=== PATIENT | male | born 1975 | race African-American/Black ===

== ENCOUNTER 2019-02-25 09:45 | Emergency (ER) | payer OTHER, SELFPAY ==
--- OUTSIDE RECORDS SUMMARY | 2019-02-25 09:48 | XMS REPORT ---
:1975 Author Organization eClinicalWorks Care Team Providers Name Role Phone Casimiro Modien Provider Role Unavailable Allergies No Known Allergies Problems Problem Type Condition Code Onset Dates Condition Status Problem Enlarged prostate N40.0 Active Problem Nausea without vomiting R11.0 Active Problem Hemorrhoids, unspecified hemorrhoid K64.9 Active type Problem Abdominal pain, unspecified R10.9 Active abdominal location Problem Respiratory symptoms R09.89 Active Problem Abnormal heart rhythm I49.9 Active Problem Circulation problem I99.9 Active Problem Migraines G43.909 Active Problem Irritable bowel K58.9 Active Problem Erectile dysfunction F52.21 Active Problem Constipation, unspecified K59.00 Active constipation type Problem Gastroesophageal reflux disease, K21.9 Active esophagitis presence not specified Problem Sinus problem J34.9 Active Problem Bloating R14.0 Active Medications No Known Medications Results No Known Results Summary Purpose [employer] Submission
--- OUTSIDE RECORDS SUMMARY | 2019-02-25 09:48 | XMS REPORT ---
:1975 Author Organization eClinicalWorks Care Team Providers Name Role Phone Rian Tequila Provider Role Unavailable Allergies, Adverse Reactions, Alerts Substance Reaction Event Type N.K.D.A. Info Not Available Non Drug Allergy Problems Problem Type Condition Code Onset Dates Condition Status Problem Enlarged prostate N40.0 Active Problem Nausea without vomiting R11.0 Active Problem Hemorrhoids, unspecified hemorrhoid K64.9 Active type Problem Migraines G43.909 Active Assessment Constipation, unspecified K59.00 Active constipation type Problem Irritable bowel K58.9 Active Assessment Hemorrhoids, unspecified hemorrhoid K64.9 Active type Assessment Enlarged prostate N40.0 Active Problem Erectile dysfunction F52.21 Active Problem Constipation, unspecified K59.00 Active constipation type Problem Gastroesophageal reflux disease, K21.9 Active esophagitis presence not specified Problem Sinus problem J34.9 Active Problem Bloating R14.0 Active Assessment Abdominal pain, unspecified R10.9 Active abdominal location Assessment Gastroesophageal reflux disease, K21.9 Active esophagitis presence not specified Assessment Nausea without vomiting R11.0 Active Assessment Bloating R14.0 Active Problem Abdominal pain, unspecified R10.9 Active abdominal location Problem Respiratory symptoms R09.89 Active Assessment Respiratory symptoms R09.89 Active Problem Abnormal heart rhythm I49.9 Active Problem Circulation problem I99.9 Active Medications Medication Code System Code Instructions Start End Date Status Dosage Date Omeprazole [facility] 89615305221 20 mg Orally Once December 23, Active 1 tablet a day for reflux 2019 ProAir HFA [facility] [id number] 108 (90 Base) December 20, Active 2 puffs as MCG/ACT 2019 needed for Inhalation every wheezing/s 4-6 hrs ob Results No Known Results Summary Purpose eClinicalWorks Submission
--- OUTSIDE RECORDS SUMMARY | 2019-02-25 09:48 | XMS REPORT ---
:1975 [facility] Address [address] [place] [address] Dr. Huertas [address] [place] [id number] Care Team Providers Name Role Phone Unavailable Unavailable Unavailable Problems This patient has no known problems. Allergies, Adverse Reactions, Alerts This patient has no known allergies or adverse reactions. Medications This patient has no known medications.
--- OUTSIDE RECORDS SUMMARY | 2019-02-25 09:48 | XMS REPORT ---
[...] K64.9 Active type Problem Migraines G43.909 Active Problem Irritable bowel K58.9 Active Problem Erectile dysfunction F52.21 Active Problem Constipation, unspecified K59.00 Active constipation type Problem Gastroesophageal reflux disease, K21.9 Active esophagitis presence not specified Problem Sinus problem J34.9 Active Problem Bloating R14.0 Active Assessment Screening for STD (sexually Z11.3 Active transmitted disease) Problem Abdominal pain, unspecified R10.9 Active abdominal location Problem Respiratory symptoms R09.89 Active Assessment Well adult exam Z00.00 Active Problem Abnormal heart rhythm I49.9 Active Problem Circulation problem I99.9 Active Medications Medication Code System Code Instructions Start End Date Status Dosage Date ProAir HFA [facility] [id number] 108 (90 Base) December 20, Active 2 puffs as MCG/ACT 2019 needed for Inhalation every wheezing/s 4-6 hrs ob Omeprazole [facility] [id number] 20 mg Orally Once December 23, Active 1 tablet a day for reflux 2019 Results No Known Results Summary Purpose eClinicalWorks Submission
--- NOTE | 2019-02-25 10:10 | EDPHYS ---
Physician Documentation [facility] Name: Liborio Martinez Age: 43 yrs Sex: Male : 1975 Arrival Date: 02/25/2019 Time: 09:48 Bed 15 Private MD: ED Physician Chandra Vigil HPI: 02/25 11:03 This 43 yrs old Black Male presents to ER via Ambulatory with complaints of Toe Pain. snw 11:03 Onset: The symptoms/episode began/occurred and became worse today. Associated signs and snw symptoms: The patient has no apparent associated signs or symptoms, Pertinent positives: The patient does not have any pertinent positive signs or symptoms associated with pediatric illness. Modifying factors: The patient symptoms are alleviated by nothing, the patient symptoms are aggravated by shoes. The patient has not experienced similar symptoms in the past. It is unknown whether or not the patient has recently seen a physician, sees Dr. Eubanks. . Historical: - Allergies: 09:49 No Known Allergies; aa5 - Home Meds: 09:49 Vira-D Oral [Active]; aa5 - PMHx: 09:49 Hypertension; GERD; aa5 - PSHx: 09:49 hand; aa5 - Immunization history:: Adult Immunizations unknown. - Social history:: Smoking status: Patient/guardian denies using tobacco. - Ebola Screening: : No symptoms or risks identified at this time. ROS: 10:55 Constitutional: Negative for fever, chills, and weight loss, Eyes: Negative for injury, snw pain, redness, and discharge, ENT: Negative for injury, pain, and discharge, Neck: Negative for injury, pain, and swelling, Cardiovascular: Negative for chest pain, palpitations, and edema, Respiratory: Negative for shortness of breath, cough, wheezing, and pleuritic chest pain, Abdomen/GI: Negative for abdominal pain, nausea, vomiting, diarrhea, and constipation, Back: Negative for injury and pain, : Negative for injury, bleeding, discharge, and swelling, MS/Extremity: Negative for injury and deformity, Neuro: Negative for headache, weakness, numbness, tingling, and seizure, Psych: Negative for depression, anxiety, suicide ideation, homicidal ideation, and hallucinations. 10:55 Skin: Positive for calluses to bilateral great toes, painful, dry, flaky. Exam: 10:55 Constitutional: This is a well developed, well nourished patient who is awake, alert, snw and in no acute distress. Head/Face: Normocephalic, atraumatic. Eyes: Pupils equal round and reactive to light, extra-ocular motions intact. Lids and lashes normal. Conjunctiva and sclera are non-icteric and not injected. Cornea within normal limits. Periorbital areas with no swelling, redness, or edema. ENT: Nares patent. No nasal discharge, no septal abnormalities noted. Tympanic membranes are normal and external auditory canals are clear. Oropharynx with no redness, swelling, or masses, exudates, or evidence of obstruction, uvula midline. Mucous membranes moist. Neck: Trachea midline, no thyromegaly or masses palpated, and no cervical lymphadenopathy. Supple, full range of motion without nuchal rigidity, or vertebral point tenderness. No Meningismus. Chest/axilla: Normal chest wall appearance and motion. Nontender with no deformity. No lesions are appreciated. Cardiovascular: Regular rate and rhythm with a normal S1 and S2. No gallops, murmurs, or rubs. Normal PMI, no JVD. No pulse deficits. Respiratory: Lungs have equal breath sounds bilaterally, clear to auscultation and percussion. No rales, rhonchi or wheezes noted. No increased work of breathing, no retractions or nasal flaring. Abdomen/GI: Soft, non-tender, with normal bowel sounds. No distension or tympany. No guarding or rebound. No evidence of tenderness throughout. Back: No spinal tenderness. No costovertebral tenderness. Full range of motion. MS/ Extremity: Pulses equal, no cyanosis. Neurovascular intact. Full, normal range of motion. Neuro: Awake and alert, GCS 15, oriented to person, place, time, and situation. Cranial nerves II-XII grossly intact. Motor strength 5/5 in all extremities. Sensory grossly intact. Cerebellar exam normal. Normal gait. Psych: Awake, alert, with orientation to person, place and time. Behavior, mood, and affect are within normal limits. 10:55 Skin: Appearance: normal except for affected area, cellulitis, that is minimal, on the callused area to bilateral, medial great toes. Vital Signs: 09:50 BP 134 / 82; Pulse 80; Resp 16 S; Temp 98.3(O); Pulse Ox 96% on R/A; Weight 129.27 kg aa5 (R); Height 5 ft. 11 in. (180.34 cm) (R); Pain 0/10; 10:46 BP 122 / 77; Pulse 78; Resp 16 S; Pulse Ox 98% on R/A; aa5 09:50 Body Mass Index 39.75 (129.27 kg, 180.34 cm) aa5 MDM: 10:03 Patient medically screened. snw 11:18 Data reviewed: vital signs, nurses notes. Data interpreted: Pulse oximetry: on room air snw is 98 %. Interpretation: normal. Counseling: I had a detailed discussion with the patient and/or guardian regarding: the historical points, exam findings, and any diagnostic results supporting the discharge/admit diagnosis, the need for outpatient follow up, to return to the emergency department if symptoms worsen or persist or if there are any questions or concerns that arise at home. 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 Exp: aa5 12/01/2020. Lot #: [id number]. } Route: IM; Site: right deltoid; 10:45 Follow up: Response: No adverse reaction aa5 Disposition: 02/25/19 10:09 Discharged to Home. Impression: Cellulitis of right toe, Cellulitis of left toe. - Condition is Stable. - Discharge Instructions: Cellulitis, Adult, VIS, Tetanus, Diphtheria (Td) - CDC. - Prescriptions for Bactrim DS 800- 160 mg Oral Tablet - take 1 tablet by ORAL route every 12 hours for 10 days; 20 tablet. - Work release form, Medication Reconciliation Form, Thank You Letter, Antibiotic Education, Prescription Opioid Use form. - Follow up: Private Physician; When: 2 - 3 days; Reason: Recheck today's complaints, Continuance of care, Re-evaluation by your physician. Follow up: Emergency Department; When: As needed; Reason: Worsening of condition. Addendum: 02/28/2019 08:49 Co-signature as Attending Physician, Chandra Vigil MD I agree with the assessment and c gordon plan of care. Signatures: Chandra Vigil MD MD cha Therrien, Shelly, SIDE PANEL HANGER-C SIDE PANEL HANGER-Csnw Arlet Bynum, RN RN aa5 Corrections: (The following items were deleted from the chart) 02/25 10:47 10:09 02/25/2019 10:09 Discharged to Home. Impression: Cellulitis of right toe; aa5 Cellulitis of left toe. Condition is Stable. Forms are Medication Reconciliation Form, Thank You Letter, Antibiotic Education, Prescription Opioid Use. Follow up: Private Physician; When: 2 - 3 days; Reason: Recheck today's complaints, Continuance of care, Re-evaluation by your physician. Follow up: Emergency Department; When: As needed; Reason: Worsening of condition. snw
--- NOTE | 2019-02-25 10:10 | ER ---
Nurse's Notes [facility] Name: Liborio Martinez Age: 43 yrs Sex: Male : 1975 Arrival Date: 02/25/2019 Time: 09:48 Bed 15 Private MD: Diagnosis: Cellulitis of right toe;Cellulitis of left toe Presentation: 02/25 09:49 Presenting complaint: Patient states: "my big toes have been hurting when I walk for aa5 about a week and they have calluses on them". 09:49 Transition of care: patient was not received from another setting of care. Onset of aa5 symptoms was February 2019. Risk Assessment: Do you want to hurt yourself or someone else? Patient reports no desire to harm self or others. Initial Sepsis Screen: Does the patient meet any 2 criteria? No. Patient's initial sepsis screen is negative. Does the patient have a suspected source of infection? No. Patient's initial sepsis screen is negative. Care prior to arrival: None. 09:49 Acuity: JUAN 5 aa5 09:49 Method Of Arrival: Ambulatory aa5 Historical: - Allergies: 09:49 No Known Allergies; aa5 - Home Meds: 09:49 Vira-D Oral [Active]; aa5 - PMHx: 09:49 Hypertension; GERD; aa5 - PSHx: 09:49 hand; aa5 - Immunization history:: Adult Immunizations unknown. - Social history:: Smoking status: Patient/guardian denies using tobacco. - Ebola Screening: : No symptoms or risks identified at this time. Screenin:50 Abuse screen: Denies threats or abuse. Nutritional screening: No deficits noted. aa5 Tuberculosis screening: No symptoms or risk factors identified. Fall Risk None identified. Assessment: 09:50 General: Appears comfortable, Behavior is calm, cooperative. Pain: Complains of pain in aa5 plantar aspect of miley first toes only with walking. Neuro: Level of Consciousness is awake, alert, obeys commands, Oriented to person, place, time, situation. Cardiovascular: Patient's skin is warm and dry. Respiratory: Airway is patent Respiratory effort is even, unlabored, Respiratory pattern is regular, symmetrical. GI: No signs and/or symptoms were reported involving the gastrointestinal system. : No signs and/or symptoms were reported regarding the genitourinary system. EENT: No signs and/or symptoms were reported regarding the EENT system. Derm: Skin is dry, Skin is normal, Skin temperature is warm Calluses noted to plantar aspect of miley first toes. Musculoskeletal: Range of motion: intact in all extremities. 10:45 Neuro: Level of Consciousness is awake, alert, obeys commands, Oriented to person, aa5 place, time, situation. Respiratory: Airway is patent Respiratory effort is even, unlabored, Respiratory pattern is regular, symmetrical. Derm: Skin is dry, Skin is normal, Skin temperature is warm. Vital Signs: 09:50 BP 134 / 82; Pulse 80; Resp 16 S; Temp 98.3(O); Pulse Ox 96% on R/A; Weight 129.27 kg aa5 (R); Height 5 ft. 11 in. (180.34 cm) (R); Pain 0/10; 10:46 BP 122 / 77; Pulse 78; Resp 16 S; Pulse Ox 98% on R/A; aa5 09:50 Body Mass Index 39.75 (129.27 kg, 180.34 cm) aa5 ED Course: 09:48 Patient arrived in ED. rg4 09:49 Arm band placed on Patient placed in an exam room, on a stretcher. aa5 09:49 Patient has correct armband on for positive identification. Bed in low position. Call aa5 light in reach. Side rails up X 1. 09:55 Arlet Bynum, RN is Primary Nurse. aa5 09:57 Triage completed. aa5 10:02 Wendie Landaverde FNP-C is [facility]. snw 10:02 Chandra Vigil MD is Attending Physician. snw 10:20 No provider procedures requiring assistance completed. Patient did not have IV access aa5 during this emergency room visit. 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 Exp: aa5 12/01/2020. Lot #: [id number]. } Route: IM; Site: right deltoid; 10:45 Follow up: Response: No adverse reaction aa5 Outcome: 10:09 Discharge ordered by . mahi 10:46 Discharged to home ambulatory. aa5 10:46 Condition: stable 10:46 Discharge instructions given to patient, Instructed on discharge instructions, follow up and referral plans. medication usage, Demonstrated understanding of instructions, follow-up care, medications, Prescriptions given X 1. 10:47 Patient left the ED. aa5 Signatures: Wendie Landaverde, SUPERVISOR STOCK RANCH-C SUPERVISOR STOCK RANCH-Csnw Arlet Bynum RN RN aa5 Ally Epperson 4
[2019-02-25] MEDS ORDERED: SMZ./TMP. 800/160 MG TABLET ONE (10:29)
[2019-02-25] MEDS ORDERED: TETANUS & DIPHTHERIA TOX,ADULT 0.5 ML VIAL ONE (10:30)
[2019-02-25 11:00] VITALS: TEMP 98.3
[2019-02-25 11:01] VITALS: BP 122/77; O2SAT 98
== END 2019-02-25 10:47 | disposition home or self-care (01) ==
LOC: ER 09:45
DX: L03.032 Cellulitis of left toe (principal); L03.031 Cellulitis of right toe; Z23 Encounter for immunization; I10 Essential (primary) hypertension; K21.9 Gastro-esophageal reflux disease without esophagitis
CPT/HCPCS: 90471; 90714; 99283

== ENCOUNTER 2019-03-11 18:36 | Emergency (ER) | payer SELFPAY ==
--- OUTSIDE RECORDS SUMMARY | 2019-03-11 18:39 | XMS REPORT ---
[...] Start End Date Status Dosage Date Omeprazole [facility] [id number] 20 mg Orally Once December 23, Active 1 tablet a day for reflux 2019 ProAir HFA [facility] [id number] 108 (90 Base) December 20, Active 2 puffs as MCG/ACT 2019 needed for Inhalation every wheezing/s 4-6 hrs ob Results No Known Results Summary Purpose eClinicalWorks Submission
--- OUTSIDE RECORDS SUMMARY | 2019-03-11 18:39 | XMS REPORT ---
:1975 [facility] Address [address] [place] [address] Dr. Huertas [address] [place] [address] Care Team Providers Name Role Phone Unavailable Unavailable Unavailable Problems This patient has no known problems. Allergies, Adverse Reactions, Alerts This patient has no known allergies or adverse reactions. Medications This patient has no known medications.
--- OUTSIDE RECORDS SUMMARY | 2019-03-11 18:39 | XMS REPORT ---
[...] Medications Results No Known Results Summary Purpose [employer]Clinical[employer] Submission
--- OUTSIDE RECORDS SUMMARY | 2019-03-11 18:39 | XMS REPORT ---
[...] End Date Status Dosage Date ProAir HFA [facility] [id number] 108 (90 Base) December 20, Active 2 puffs as MCG/ACT 2019 needed for Inhalation every wheezing/s 4-6 hrs ob Omeprazole [facility] [id number] 20 mg Orally Once December 23, Active 1 tablet a day for reflux 2019 Results No Known Results Summary Purpose eClinicalWorks Submission
--- NOTE | 2019-03-11 19:12 | EDPHYS ---
Physician Documentation [facility] Name: Liborio Martinez Age: 44 yrs Sex: Male : 1975 Arrival Date: 03/11/2019 Time: 18:41 Bed 15 Private MD: Tequila Modi ED Physician Frederic Victoria HPI: 03/11 19:05 This 44 yrs old Black Male presents to ER via Ambulatory with complaints of Foot Pain - ps1 left and right, Feet Swelling - left and right. 19:05 patient has had callouses on the great toe of both feet for months. Went to [facility] and gave him a pumice stone to self treat. Patient states that he continues to have pain. Patient states that his pain is worse with ambulating. Has not had a gait or foot evaluation and has a pair of shoes that are obviously worn and out of life span. No cellulitic changes or fever. . Historical: - Home Meds: 18:51 Vira-D Oral [Active]; Bactrim DS 800-160 mg Oral tab 1 tab 4 times per day [Active]; tw2 - PMHx: 18:51 GERD; Hypertension; tw2 - PSHx: 18:51 hand; tw2 - Immunization history:: Adult Immunizations. - Social history:: Smoking status: . - Ebola Screening: : Patient denies travel to an Ebola-affected area in the 21 days before illness onset. ROS: 19:05 Constitutional: Negative for fever, chills, and weight loss, Eyes: Negative for injury, ps1 pain, redness, and discharge, Cardiovascular: Negative for chest pain, palpitations, and edema, Respiratory: Negative for shortness of breath, cough, wheezing, and pleuritic chest pain, Abdomen/GI: Negative for abdominal pain, nausea, vomiting, diarrhea, and constipation, Back: Negative for injury and pain, Skin: Negative for injury, rash, and discoloration, Neuro: Negative for headache, weakness, numbness, tingling, and seizure. 19:05 MS/extremity: Positive for pain, of the plantar aspect of right first toe, and plantar aspect of left first toe. . Exam: 19:05 Constitutional: This is a well developed, well nourished patient who is awake, alert, ps1 and in no acute distress. Head/Face: Normocephalic, atraumatic. Eyes: Pupils equal round and reactive to light, extra-ocular motions intact. Lids and lashes normal. Conjunctiva and sclera are non-icteric and not injected. ENT: Nares patent. No nasal discharge, no septal abnormalities noted. Tympanic membranes are normal and external auditory canals are clear. Oropharynx with no redness, swelling, or masses, exudates, or evidence of obstruction, uvula midline. Mucous membranes moist. Chest/axilla: Normal chest wall appearance and motion. Nontender with no deformity. No lesions are appreciated. Cardiovascular: Regular rate and rhythm. No gallops, murmurs, or rubs. Normal PMI, no JVD. No pulse deficits. Respiratory: Lungs have equal breath sounds bilaterally, clear to auscultation and percussion. No rales, rhonchi or wheezes noted. No increased work of breathing, no retractions or nasal flaring. Abdomen/GI: Soft, non-tender, with normal bowel sounds. No distension or tympany. No guarding or rebound. No evidence of tenderness throughout. Skin: Warm, dry with normal turgor. Normal color with no rashes, no lesions, and no evidence of cellulitis. Neuro: Awake and alert, GCS 15, oriented to person, place, time, and situation. Cranial nerves II-XII grossly intact. Sensory grossly intact. 19:05 Musculoskeletal/extremity: Extremities: grossly normal except: noted in the plantar aspect of right first toe: callous, noted in the plantar aspect of left first toe: callous. No obvious signs of infection on either foot. . Vital Signs: 18:51 BP 143 / 88; Pulse 66; Resp 17; Temp 98.3(O); Pulse Ox 96% on R/A; Weight 129.27 kg tw2 (R); Height 5 ft. 11 in. (180.34 cm); Pain 6/10; 18:51 Body Mass Index 39.75 (129.27 kg, 180.34 cm) tw2 MDM: 19:01 Patient medically screened. cp 19:05 Data reviewed: vital signs, nurses notes, and as a result, I will discharge patient. ps1 Counseling: I had a detailed discussion with the patient and/or guardian regarding: the historical points, exam findings, and any diagnostic results supporting the discharge/admit diagnosis, the need for outpatient follow up, for definitive care, a chief medical physicist, get gait analysis with Dr. Stallings foot analysis. Get new shoes that are appropriate for flat footed individuals. Take aleve OTC for pain. . Administered Medications: No medications were administered Disposition: 03/11/19 19:11 Discharged to Home. Impression: Bilateral foot callous. - Condition is Stable. - Discharge Instructions: Corns and Calluses. - Prescriptions for Anaprox DS 550 mg Oral Tablet - take 1 tablet by ORAL route every 12 hours As needed; 20 tablet. - Work release form, Medication Reconciliation Form, Thank You Letter, Antibiotic Education, Prescription Opioid Use form. - Follow up: Private Physician; When: As needed; Reason: Further diagnostic work-up, Recheck today's complaints, Continuance of care, Re-evaluation by your physician. Follow up: Emergency Department; When: As needed; Reason: Fever > 102 F, Worsening of condition. - Problem is chronic. - Symptoms are unchanged. Signatures: Emre Jimenez RN RN la1 Chandra Siegel PA PA cp Wise, Tara, RN RN tw2 Frederic Victoria MD MD ps1 Corrections: (The following items were deleted from the chart) 19:18 19:11 03/11/2019 19:11 Discharged to Home. Impression: Bilateral foot callous. la1 Condition is Stable. Forms are Work release form, Medication Reconciliation Form, Thank You Letter, Antibiotic Education, Prescription Opioid Use. Follow up: Private Physician; When: As needed; Reason: Further diagnostic work-up, Recheck today's complaints, Continuance of care, Re-evaluation by your physician. Follow up: Emergency Department; When: As needed; Reason: Fever > 102 F, Worsening of condition. Problem is chronic. Symptoms are unchanged. ps1
--- NOTE | 2019-03-11 19:12 | ER ---
Nurse's Notes [facility] Name: Liborio Martinez Age: 44 yrs Sex: Male : 1975 Arrival Date: 03/11/2019 Time: 18:41 Bed 15 Private MD: Tequila Modi Diagnosis: Bilateral foot callous Presentation: 03/11 18:48 Presenting complaint: Patient states: my feet are hurting real bad on the bottom, i tw2 have calluses and under my big toes i have callus. Transition of care: patient was not received from another setting of care. Onset of symptoms was March 11, 2019. Risk Assessment: Do you want to hurt yourself or someone else? Patient reports no desire to harm self or others. Initial Sepsis Screen: Does the patient meet any 2 criteria? No. Patient's initial sepsis screen is negative. Does the patient have a suspected source of infection? No. Patient's initial sepsis screen is negative. Care prior to arrival: None. 18:48 Method Of Arrival: Ambulatory tw2 18:50 Presenting complaint: Patient states: i was supposed to go to work today but i just tw2 cant stand at work so i am here. 18:51 Acuity: JUAN 3 tw2 Triage Assessment: 18:49 General: Appears in no apparent distress. Behavior is calm, cooperative, appropriate tw2 for age. Pain: Complains of pain in right foot and left foot. Historical: - Home Meds: 18:51 Vira-D Oral [Active]; Bactrim DS 800-160 mg Oral tab 1 tab 4 times per day [Active]; tw2 - PMHx: 18:51 GERD; Hypertension; tw2 - PSHx: 18:51 hand; tw2 - Immunization history:: Adult Immunizations. - Social history:: Smoking status: . - Ebola Screening: : Patient denies travel to an Ebola-affected area in the 21 days before illness onset. Screenin:05 Abuse screen: Denies threats or abuse. Nutritional screening: No deficits noted. la1 Tuberculosis screening: No symptoms or risk factors identified. Fall Risk None identified. Assessment: 19:05 General: Appears in no apparent distress. Behavior is calm, cooperative. Pain: la1 Complains of pain in right foot and left foot. Neuro: Level of Consciousness is awake, alert, obeys commands, Oriented to person, place, time, situation, Moves all extremities. Full function Gait is steady, Speech is normal. Cardiovascular: Capillary refill < 3 seconds Patient's skin is warm and dry. Respiratory: Airway is patent Respiratory effort is Respiratory pattern is regular, symmetrical. Vital Signs: 18:51 BP 143 / 88; Pulse 66; Resp 17; Temp 98.3(O); Pulse Ox 96% on R/A; Weight 129.27 kg tw2 (R); Height 5 ft. 11 in. (180.34 cm); Pain 6/10; 18:51 Body Mass Index 39.75 (129.27 kg, 180.34 cm) tw2 ED Course: 18:41 Patient arrived in ED. ss4 18:41 Tequila Modi MD is Private Physician. ss4 18:49 Triage completed. tw2 18:49 Arm band placed on. tw2 18:52 Emre Jimenez RN is Primary Nurse. la1 19:00 Chandra Siegel PA is PHCP. cp 19:01 Frederic Victoria MD is Attending Physician. cp 19:05 Call light in reach. Side rails up X 1. la1 19:05 No provider procedures requiring assistance completed. la1 19:18 Patient did not have IV access during this emergency room visit. la1 Administered Medications: No medications were administered Outcome: 19:11 Discharge ordered by . ps1 19:18 Discharged to home ambulatory. la1 19:18 Condition: stable 19:18 Discharge instructions given to patient, Instructed on discharge instructions, follow up and referral plans. medication usage, Demonstrated understanding of instructions, follow-up care, medications, Prescriptions given X 1. 19:18 Patient left the ED. la1 Signatures: Emre Jimenez RN RN la1 Chandra Siegel PA PA cp Wise, Tara, RN RN tw2 Frederic Victoria MD MD ps1 Roselyn Keane ss4 Corrections: (The following items were deleted from the chart) 18:51 18:48 Acuity: JUAN 4 tw2 tw2
[2019-03-11 19:49] VITALS: BP 143/88; TEMP 98.3; O2SAT 96
== END 2019-03-11 19:18 | disposition home or self-care (01) ==
LOC: ER 18:36
DX: L84 Corns and callosities (principal)
CPT/HCPCS: 99282

== ENCOUNTER 2019-08-23 18:43 | Emergency (ER) | payer SELFPAY ==
--- OUTSIDE RECORDS SUMMARY | 2019-08-23 18:44 | XMS REPORT ---
:1975 [facility] Address [address] [place] [address] Dr. Huertas [address] [place] [id number] Care Team Providers Name Role Phone Unavailable Unavailable Unavailable Problems This patient has no known problems. Allergies, Adverse Reactions, Alerts This patient has no known allergies or adverse reactions. Medications This patient has no known medications.
--- OUTSIDE RECORDS SUMMARY | 2019-08-23 18:45 | XMS REPORT ---
:1975 Author Organization [employer] Care Team Providers Name Role Phone Casimiro Modien Provider Role Unavailable Allergies, Adverse Reactions, Alerts Substance Reaction Event Type N.K.D.A. Info Not Available Non Drug Allergy Problems Problem Type Condition Code Onset Dates Condition Status Assessment Gastroesophageal reflux disease, K21.9 Active esophagitis presence not specified Assessment Obesity (BMI 30-39.9) E66.9 Active Assessment Prediabetes R73.03 Active Assessment Shortness of breath R06.02 Active Assessment Hypertension, unspecified type I10 Active Problem Erectile dysfunction F52.21 Active Problem Bloating R14.0 Active Problem Obesity (BMI 30-39.9) E66.9 Active Problem Fatigue, unspecified type R53.83 Active Problem Sinus problem J34.9 Active Problem Elevated BP without diagnosis of R03.0 Active hypertension Problem Pain of left foot M79.672 Active Problem Pain in right foot M79.671 Active Problem Hypertension, unspecified type I10 Active Problem Prediabetes R73.03 Active Problem Gastroesophageal reflux disease, K21.9 Active esophagitis presence not specified Problem Migraines G43.909 Active Problem Shortness of breath R06.02 Active Problem Irritable bowel K58.9 Active Problem Skin lesions L98.9 Active Problem Blurry vision, bilateral H53.8 Active Problem Urinary frequency R35.0 Active Problem Callus of foot L84 Active Problem Circulation problem I99.9 Active Problem Enlarged prostate N40.0 Active Problem Constipation, unspecified K59.00 Active constipation type Problem Abnormal heart rhythm I49.9 Active Problem Abdominal pain, unspecified R10.9 Active abdominal location Problem Respiratory symptoms R09.89 Active Problem Hemorrhoids, unspecified hemorrhoid K64.9 Active type Problem Nausea without vomiting R11.0 Active Medications Medication Code Code Instructions Start End Date Status Dosage System Date Protonix [facility] 35362337791 20 MG Orally April 03, Active 1 tablet Once a day for 2019 acid reflux ProAir HFA [facility] 56517302266 108 (90 Base) December 20, Active 2 puffs MCG/ACT 2018 as needed Inhalation every for 4-6 hrs wheezing/ sob Enalapril ND 08190178071 10 MG Orally Jul 04, Active 1 tablet Maleate Once a day for 2018 high blood pressure Omeprazole [facility] [id number] 20 mg Orally December 23, Active 1 tablet Once a day for 2018 reflux Results No Known Results Summary Purpose eClinicalWorks Submission
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
[2019-08-23] MEDS ORDERED: LIDOCAINE 1% W/EPI 1:100,000 MDV 20 ML VIAL ONE (19:15)
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
[2019-08-23 19:47] LABS: Absolute Lymphocytes (CBC) 1.7 K/uL (0.7-4.9); Basophils % 0.2 % (0-1.3); Hematocrit 40.6 % (39.6-49.0); Lymphocytes % 15.4 % (15.3-44.8); MPV 8.1 fL (7.6-11.3)
[2019-08-23 19:57] LABS: Potassium 3.4 mmol/L (3.5-5.1)
[2019-08-23] MEDS ORDERED: ONDANSETRON 4 MG/2 ML VIAL ONE (20:42)
[2019-08-23] MEDS ORDERED: NA CHLORIDE 0.9% 1,000 ML ONE (20:42)
[2019-08-23] MEDS ORDERED: MORPHINE 4 MG/ML SYR ONE (20:42)
[2019-08-23] MEDS ORDERED: CEFAZOLIN/SWI 1gm 1 GM/10 ML SYR ONE (20:43)
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
[2019-08-24 02:37] VITALS: TEMP 98.6
[2019-08-24 02:40] VITALS: BP 150/96; O2SAT 97
== END 2019-08-23 22:43 | disposition short-term general hospital (02) ==
LOC: ER 18:43
PROC: 0JQ00ZZ Repair Scalp Subcutaneous Tissue and Fascia, Open Approach (ICD-10-PCS; principal; 2019-08-23)
DX: S02.32XA Fracture of orbital floor, left side, initial encounter for closed fracture (principal); W50.0XXA Accidental hit or strike by another person, initial encounter; Y93.89 Activity, other specified; Y92.89 Other specified places as the place of occurrence of the external cause; I10 Essential (primary) hypertension
CPT/HCPCS: 36415; 70450; 70486; 72125; 76377; 80048; 85025; J0690; J2405; J7030

== ENCOUNTER 2019-09-20 17:53 | Emergency (ER) | payer BC, SELFPAY ==
--- OUTSIDE RECORDS SUMMARY | 2019-09-20 17:55 | XMS REPORT ---
:1975 [facility] Address [address] [place] [address] Dr. Huertas [address] [place] [id number] Care Team Providers Name Role Phone Unavailable Unavailable Unavailable Problems This patient has no known problems. Allergies, Adverse Reactions, Alerts This patient has no known allergies or adverse reactions. Medications This patient has no known medications. Encounters Start End Encounter Admission Attending Care Care Encounter Date/Time Date/Time Type Type Clinicians Facility Department ID 2019-08-23 2019-08-23 Emergency E [facility] [id number] 23:36:00 23:36:00
--- OUTSIDE RECORDS SUMMARY | 2019-09-20 17:56 | XMS REPORT ---
[...] End Date Status Dosage System Date Protonix [facility] [id number] 20 MG Orally April 03, Active 1 tablet Once a day for 2019 acid reflux ProAir HFA [facility] [id number] 108 (90 Base) December 20, Active 2 puffs MCG/ACT 2018 as needed Inhalation every for 4-6 hrs wheezing/ sob Enalapril ND [id number] 10 MG Orally Jul 04, Active 1 tablet Maleate Once a day for 2018 high blood pressure Omeprazole [facility] [id number] 20 mg Orally December 23, Active 1 tablet Once a day for 2018 reflux Results No Known Results Summary Purpose eClinicalWorks Submission
[2019-09-20] MEDS ORDERED: IBUPROFEN 400 MG TAB ONE (18:27)
[2019-09-20] MEDS ORDERED: IBUPROFEN 200 MG TAB PO ONE (18:27)
--- NOTE | 2019-09-20 19:05 | EDPHYS ---
Physician Documentation [facility] Name: Liborio Martinez Age: 44 yrs Sex: Male : 1975 Arrival Date: 09/20/2019 Time: 17:58 Bed 11 Private MD: ED Physician Dimitrios Dietrich HPI: 09/20 18:14 This 44 yrs old Black Male presents to ER via Ambulatory with complaints of Wrist Pain, la1 Arm Pain. 18:14 The patient or guardian reports pain, tenderness. The complaints affect the. Context: la1 The problem was sustained at home, resulted from an unknown cause. Onset: The symptoms/episode began/occurred 2 week(s) ago. Modifying factors: The symptoms are alleviated by nothing, the symptoms are aggravated by nothing. Associated signs and symptoms: Pertinent negatives: cyanosis distally, decreased sensation distally, fever, nausea, numbness distally, tingling distally, vomiting. The patient has experienced a previous episode. pt reports 2-3 week history of pain and swelling to the left distal forearm proximal to the wrist. . Historical: - Allergies: 18:06 No Known Allergies; ca1 - Home Meds: 18:06 unknown blood pressure medication [Active]; ca1 - PMHx: 18:06 GERD; Hypertension; ca1 - PSHx: 18:06 None; ca1 - Immunization history:: Adult Immunizations up to date, Last tetanus immunization: up to date Flu vaccine is not up to date. - Social history:: Smoking status: Patient/guardian denies using tobacco. - Ebola Screening: : Patient negative for fever greater than or equal to 101.5 degrees Fahrenheit, and additional compatible Ebola Virus Disease symptoms Patient denies exposure to infectious person Patient denies travel to an Ebola-affected area in the 21 days before illness onset No symptoms or risks identified at this time. ROS: 18:15 Constitutional: Negative for fever, chills, and weight loss, Eyes: Negative for injury, la1 pain, redness, and discharge, ENT: Negative for injury, pain, and discharge, Neck: Negative for injury, pain, and swelling, Cardiovascular: Negative for chest pain, palpitations, and edema, Respiratory: Negative for shortness of breath, cough, wheezing, and pleuritic chest pain, Abdomen/GI: Negative for abdominal pain, nausea, vomiting, diarrhea, and constipation, Back: Negative for injury and pain, : Negative for injury, bleeding, discharge, and swelling. 18:15 MS/extremity: Positive for pain, tenderness, of the dorsal aspect of left forearm. Exam: 18:16 Constitutional: This is a well developed, well nourished patient who is awake, alert, la1 and in no acute distress. Head/Face: Normocephalic, atraumatic. Eyes: Pupils equal round and reactive to light, extra-ocular motions intact.. Periorbital areas with no swelling, redness, or edema. ENT: Mucous membranes moist. Chest/axilla: Normal chest wall appearance and motion. Nontender with no deformity. No lesions are appreciated. Cardiovascular: Regular rate and rhythm with a normal S1 and S2. No gallops, murmurs, or rubs. Normal PMI, no JVD. No pulse deficits. MS/ Extremity: Pulses equal, no cyanosis. Neurovascular intact. Full, normal range of motion. Vital Signs: 18:06 BP 142 / 95; Pulse 85; Resp 17 S; Temp 98.2(O); Pulse Ox 98% on R/A; Weight 122.47 kg ca1 (R); Height 5 ft. 11 in. (180.34 cm) (R); Pain 5/10; 18:06 Body Mass Index 37.66 (122.47 kg, 180.34 cm) ca1 MDM: 18:10 Patient medically screened. la1 19:03 Data reviewed: vital signs, nurses notes, radiologic studies, I have discussed the la1 patient's presentation/case with the attending Emergency Department Physician; and as a result, I will discharge patient. Test interpretation: by ED physician or midlevel provider: plain radiologic studies. Counseling: I had a detailed discussion with the patient and/or guardian regarding: the historical points, exam findings, and any diagnostic results supporting the discharge/admit diagnosis, radiology results, the need for outpatient follow up, a family practitioner. Special discussion: I discussed with the patient/guardian that the patient's current presentation does not indicate dosing of antibiotics. They should follow-up with their primary care provider and return if the symptoms persist or progress. 09/20 18:14 Order name: Forearm Left XRAY la1 Administered Medications: 18:27 Drug: Ibuprofen 600 mg Route: PO; ca1 Disposition: 09/20/19 19:04 Discharged to Home. Impression: Pain in left forearm. - Condition is Stable. - Discharge Instructions: Musculoskeletal Pain, Pain Without a Known Cause, Heat Therapy, [id number]. - Medication Reconciliation Form, Thank You Letter, Work release form form. - Follow up: Private Physician; When: 2 - 3 days; Reason: Recheck today's complaints, Re-evaluation by your physician. - Problem is new. - Symptoms have improved. Addendum: 09/21/2019 21:06 Co-signature as Attending Physician, Dimitrios Dietrich MD I agree with the assessment and k dr plan of care. Signatures: Dispatcher [employer] EDAR Dimitrios Dietrich MD MD [facility] Emre Jimenez, DEER FARMER-C DEER FARMER-Cla1 Simona Gifford, RN RN AcobEula RN RN [facility] Corrections: (The following items were deleted from the chart) 09/20 19:11 19:04 09/20/2019 19:04 Discharged to Home. Impression: Pain in left forearm. Condition hb is Stable. Forms are Medication Reconciliation Form, Thank You Letter, Antibiotic Education, Prescription Opioid Use. Follow up: Private Physician; When: 2 - 3 days; Reason: Recheck today's complaints, Re-evaluation by your physician. Problem is new. Symptoms have improved. la1
--- NOTE | 2019-09-20 19:05 | ER ---
Nurse's Notes [facility] Name: Liborio Martinez Age: 44 yrs Sex: Male : 1975 Arrival Date: 09/20/2019 Time: 17:58 Bed 11 Private MD: Diagnosis: Pain in left forearm Presentation: 09/20 18:03 Presenting complaint: Patient states: L forearm pain started 2-3 weeks ago. Denies any ca1 injuries to the area. Reports swelling and tenderness in the area. Transition of care: patient was not received from another setting of care. Onset of symptoms was September 20, 2019. Risk Assessment: Do you want to hurt yourself or someone else? Patient reports no desire to harm self or others. Initial Sepsis Screen: Does the patient meet any 2 criteria? No. Patient's initial sepsis screen is negative. Does the patient have a suspected source of infection?. Care prior to arrival: None. 18:03 Method Of Arrival: Ambulatory ca1 18:03 Acuity: JUAN 4 ca1 Triage Assessment: 18:06 General: Appears in no apparent distress. comfortable, Behavior is calm, cooperative, ca1 appropriate for age. Pain: Complains of pain in dorsal aspect of left forearm Pain currently is 5 out of 10 on a pain scale. Pain began 2-3 weeks. Neuro: Level of Consciousness is awake, alert, obeys commands, Oriented to person, place, time, situation. Derm: Skin is intact, is healthy with good turgor, Skin is pink, warm \T\ dry. Derm: Musculoskeletal: Circulation, motion, and sensation intact. Capillary refill < 3 seconds, Range of motion: intact in all extremities. Historical: - Allergies: 18:06 No Known Allergies; ca1 - Home Meds: 18:06 unknown blood pressure medication [Active]; ca1 - PMHx: 18:06 GERD; Hypertension; ca1 - PSHx: 18:06 None; ca1 - Immunization history:: Adult Immunizations up to date, Last tetanus immunization: up to date Flu vaccine is not up to date. - Social history:: Smoking status: Patient/guardian denies using tobacco. - Ebola Screening: : Patient negative for fever greater than or equal to 101.5 degrees Fahrenheit, and additional compatible Ebola Virus Disease symptoms Patient denies exposure to infectious person Patient denies travel to an Ebola-affected area in the 21 days before illness onset No symptoms or risks identified at this time. Screenin:09 Abuse screen: Denies threats or abuse. Denies injuries from another. Nutritional ca1 screening: No deficits noted. Tuberculosis screening: No symptoms or risk factors identified. Fall Risk None identified. Assessment: 18:09 Reassessment: SEE TRIAGE ASSESSMENT. ca1 Vital Signs: 18:06 BP 142 / 95; Pulse 85; Resp 17 S; Temp 98.2(O); Pulse Ox 98% on R/A; Weight 122.47 kg ca1 (R); Height 5 ft. 11 in. (180.34 cm) (R); Pain 5/10; 18:06 Body Mass Index 37.66 (122.47 kg, 180.34 cm) ca1 ED Course: 17:58 Patient arrived in ED. ag5 18:05 Triage completed. ca1 18:06 Arm band placed on right wrist. ca1 18:09 Eula Mcelroy RN is Primary Nurse. ca1 18:09 Patient has correct armband on for positive identification. Bed in low position. Call ca1 light in reach. Side rails up X 1. Pulse ox on. NIBP on. 18:09 No provider procedures requiring assistance completed. Patient did not have IV access ca1 during this emergency room visit. 18:10 Emre Jimenez FNP-C is PSYCHIATRIC. la1 18:10 Dimitrios Dietrich MD is Attending Physician. la1 18:38 Forearm Left XRAY In Process Unspecified. EDMS Administered Medications: 18:27 Drug: Ibuprofen 600 mg Route: PO; ca1 Outcome: 19:04 Discharge ordered by . la1 19:10 Discharged to home ambulatory. hb 19:10 Condition: stable 19:10 Discharge instructions given to patient, Instructed on discharge instructions, follow up and referral plans. medication usage, Demonstrated understanding of instructions, follow-up care, medications. 19:11 Patient left the ED. hb Signatures: Dispatcher [employer] EDMS Emre Jimenez FNP-C FNP-Cla1 Simona Gifford RN QUEENIE Eula Mcelroy RN RN ca1 Tasha Dunn ag5
--- NOTE | 2019-09-20 19:29 | RAD REPORT ---
EXAM DESCRIPTION: RAD - Forearm Left - 09/20/2019 6:37 pm CLINICAL HISTORY: Nontraumatic left forearm pain COMPARISON: None. FINDINGS: No fracture is identified. There is no dislocation or periosteal reaction noted. No foreign body or other soft tissue abnormality. Spurring is present at the triceps attachment to t he olecranon. No suspicion for joint fluid or blood at the elbow IMPRESSION: Negative left forearm examination.
== END 2019-09-20 19:11 | disposition home or self-care (01) ==
LOC: ER 17:53
DX: M79.632 Pain in left forearm (principal); I10 Essential (primary) hypertension
CPT/HCPCS: 99283

== ENCOUNTER 2020-07-12 17:35 | Emergency (ER) | payer BC, SELFPAY ==
--- OUTSIDE RECORDS SUMMARY | 2020-07-12 17:36 | XMS REPORT | Summary of Care ---
:1975 Author Organization [facility] - Health Address [address] [place] [id number] Care Team Providers Name Role Phone Duke Coreas Primary Care Provider Encounter Details Date Type Department Care Team Description 05/08/2020 Orders Only [facility] Doctor Unassigned, No [facility] [place] [address] [address] [place] [address] Allergies No Known Allergiesdocumented as of this encounter (statuses as of 05/08/2020) Medications Medication Sig Dispensed Refills Start Date [...] Inhale 2 Puffs 8.5 g 0 10/19/2018 A ctive mcg/actuation every 4 (four) inhalerIndications: hours as [...] as of this encounter (statuses as of 05/08/2020) Active Problems Problem Noted Date KAMRON (obstructive sleep apnea) 05/02/2018 Prediabetes 02/23/2018 documented as of this encounter (statuses as of 05/08/2020) Immunizations Name Administration Dates Next Due Td 05/23/2018 documented as of this encounter Social History Tobacco Use Types Packs/Day Years Used Date Never Smoker Smokeless Tobacco: Never Used Alcohol Use Drinks/Week oz/Week Comments Yes 0 Standard drinks or equival ent 6.0 6 Cans of beer Sex Assigned at Date Recorded Not on file documented as of this encounter Last Filed Vital Signs Not on filedocumented in this encounter Plan of Treatment Health Maintenance Due Date Last Done Comments DTaP,Tdap,and Td Vaccines (1 - 02/29/1984 05/23/2018 Tdap) Depression Screening 1985 INFLUENZA VACCINE (#1) 2020 PNEUMOCOCCAL 0-64 YEARS COMBINED Aged Out No longer eligible based on SERIES patient's age to complete this topic documented as of this encounter Procedures Procedure Name Priority Date/Time Associated Diagnosis Comme nts CONSENT/REFUSAL FOR Routine 05/08/2020 3:12 PM CDT DIAGNOSIS AND TREATMENT documented in this encounter Results Not on filedocumented in this encounter Insurance Payer Benefit Plan Subscriber ID Effective Dates Phone Address Type / Group [facility] [id number] 2018-Beka [phone] [address] PPO/POS [place] - OUT OF 7 [id number] [place] [address] documented as of this encounter
--- OUTSIDE RECORDS SUMMARY | 2020-07-12 17:36 | XMS REPORT | Clinical Summary ---
:1975 Author Organization [facility] Address [address] [place] [address] Care Team Providers Name Role Phone Unavailable Primary Care Provider Unavailable Allergies No Known Allergies Medications Medication Sig Dispensed Refills Start Date End Date Status tamsulosin (FLOMAX) Take 1 capsule by 30 capsule 0 02/02/2016 Active 0.4 mg extended mouth daily. release capsuleIndications: Urinary retention finasteride (PROSCAR) Take 1 tablet by 30 tablet 0 02/02/2016 Active 5 mg mouth daily. tabletIndications: Urinary retention Active Problems Problem Noted Date Urinary frequency Urinary retention Social History Tobacco Use Types Packs/Day Years Used Date Never Assessed Sex Assigned at Date Recorded Not on file Job Start Date Occupation Industry Not on file Not on file Not on file Travel History Travel Start Travel End No recent travel history available. Last Filed Vital Signs Not on file Plan of Treatment Health Maintenance Due Date Last Done Comments IMM Influenza Seasonal Jul to December (>/= 19 yrs) 07/04/2020 Results Not on fileafter 07/12/2019 Insurance Payer Benefit Plan / Subscriber ID Effective Dates Phone Addre ss Type Group [facility] SELF-PAY xxxxxxxxx 2016-Prese [phone] [id number] SELF-PAY [address]ENED [address] [place] [address] (Work) [id number]
--- OUTSIDE RECORDS SUMMARY | 2020-07-12 17:36 | XMS REPORT | Continuity of Care Document ---
:1975 Author Organization [facility] t Address [address] [place] [address] Care Team Providers Name Role Phone Duke Wilburn Attending Clinician Singer HERNANDEZ Attending Clinician Jevon DE LA TORRE Attending Clinician Doctor Unassigned, Name Attending Clinician Unavailable Virgil DE LA TORRE Attending Clinician Jevon DE LA TORRE Admitting Clinician Problems Condition Condition Condition Status Onset Resolution Last Treating Co mments Source Name Details Category Date Date Treatment Clinician Date Enlarged Enlarged [facility] Nausea Nausea Problem Active [facility] without without [facility] - vomiting vomiting [facility] Hemorrhoid Hemorrhoid Problem Active [facility], s, [facility] - unspecifie unspecifie Me moria d d l hemorrhoid hemorrhoid Ou tpati type type ent Clinics Migraines Migraines Problem Active [facility] Constipati Constipati Problem Active [facility] on, on, [facility] - unspecifie unspecifie Me moria d d l constipati constipati Ou tpati on type on type ent Clinics Irritable Irritable Problem Active [facility] bowel bowel [facility] Erectile Erectile Problem Active [facility] dysfunctio dysfunctio Maritza kes - n n [facility] Gastroesop Gastroesop Problem Active [facility] hageal hageal [facility] - reflux reflux Memoria disease, disease, l esophagiti esophagiti Ou tpati s presence s presence en t not not Clinics specified specified Sinus Sinus Problem Active [facility] problem problem [facility] Bloating Bloating Problem [facility] Abdominal Abdominal Problem Active [facility] pain, pain, [facility] - unspecifie unspecifie Me moria d d l abdominal abdominal Outp ati location location ent Clinics Respirator Respirator Problem Active [facility] y symptoms y symptoms Maritza kes - [facility] Abnormal Abnormal Problem Active [facility] Circulatio Circulatio Problem Active [facility] n problem n problem Luke s - [facility] Pain in Pain in Problem Active [facility] right foot right foot Maritza kes [facility] Callus of Callus of Problem Active [facility] foot foot [facility] Pain of Pain of Problem Active [facility] left foot left foot [facility] - [facility] Obesity Obesity Problem Active [facility] (BMI (BMI [facility] - 30-39.9) 30-39.9) [facility]ori a [facility] Elevated Elevated Problem Active [facility] BP without BP without Maritza caras - diagnosis diagnosis Gorge dinesh of of l hypertensi hypertensi Ou tpati on on ent Clinics Fatigue, Fatigue, Problem Active [facility] unspecifie unspecifie Maritza marroquins - d type d type Samiaoria l [facility] Prediabete Prediabete Problem Active [facility] Blurry Blurry Problem Active [facility] vision, vision, [facility] - bilateral bilateral Gorge dinesh l [facility] Urinary Urinary Problem Active [facility] frequency frequency [facility] Skin Skin Problem Active [facility] lesions lesions [facility] Shortness Shortness Problem Active [facility] of breath of breath Luke s - [facility] Hypertensi Hypertensi Problem Active [facility] on, on, [facility] - unspecifie unspecifie Me moria d type d type l [facility] Urinary Urinary Disease Active [facility] frequency frequency [facility] Urinary Urinary Disease Active [facility] retention retention [facility] Allergies, Adverse Reactions, Alerts This patient has no known allergies or adverse reactions. Social History Social Habit Start Date Stop Date Quantity Comments Source Sex Assigned At [facility] Medications Ordered Filled Start Stop Current Ordering Indication Dosage Frequency Signature Comments Components Source Medication Medication Date Date Medication? Clinician (SIG) Name Name Enalapril Enalapril 2018-10 Yes Tequila [address] [facility] Maleate Maleate 0-01 Millender Luke [facility] - 00:00: [facility] 00 [facility] Protonix Protonix Yes Tequila [address] [facility] 7-01 Millender [facility] - 00:[facility]: [facility] 00 [facility] Omeprazole Omeprazole Yes Tequila [address] [facility] 3-22 Millender [facility] - 00:00: [facility]oria 00 l [facility] ProAir HFA ProAir HFA Yes Tequila [address] [facility] 3-19 Millender needed for Luke s - 00:00: wheezing/s Memoria 00 ob l [facility] tamsulosin Yes Urinary .4mg QD Take 1 Hernandez rris (FLOMAX) 5-01 retention capsule by [facility] 0.4 mg 00:00: mouth extended 00 daily. release capsule finasteride Yes Urinary 5mg QD Take 1 H arris (PROSCAR) 5 5-01 retention tablet by [facility] mg tablet 00:00: mouth 00 daily. Procedures This patient has no known procedures. Plan of Care Planned Activity Planned Date Details Comments Source Future Scheduled Test 2020-07-04 00:00:00 IMM Influenza [facility] Seasonal Jul to December (>/= 19 yrs) [code = IMM Influenza Seasonal Jul to December (>/= 19 yrs)] Encounters Start End Encounter Admission Attending Care Care Encounter Source Date/Time Date/Time Type Type Clinicians Facility Department ID 2020-06-05 2020-06-05 CHARISSE Farah [id number] 00:00:00 00:00:00 (Out) [facility] [id number] [place] [id number] [facility] [id number] nal [address] 2020-05-08 2020-05-09 Emergency Frederic Victoria [facility] [id number] 15:22:00 15:17:00 Johnny Escoto [id number] [place] [id number] [place] [id number] 2020-05-08 2020-05-08 Orders Doctor COLLINS [id number] 00:00:00 00:00:00 Only Unassigned, VETO [id number] [place] [facility] [id number] 2019-08-23 2019-08-23 Emergency E [facility] 7503 [facility] 23:36:00 23:36:00 2019-07-04 2019-07-04 [facility] [id number] [address] 13:00:00 13:00:00 [facility] 2019-05-04 2019-05-04 Emergency Virgil, [facility] [id number] 08:50:38 11:23:00 Rudi Campos [id number] [place] [id number] [place] [id number] 2019-05-02 2019-05-02 [facility] [id number] 22:49:00 22:49:00 [facility] Medicine Outpati ent Clinics 2019-05-02 2019-05-02 [facility] [id number] [address] 13:20:00 13:20:00 [facility] Medicine Outpati ent Clinics 2019-05-01 2019-05-01 [facility] [id number] 14:30:00 14:30:00 [facility] Medicine Outpati ent Clinics 2019-04-03 2019-04-03 [facility] [id number] 16:19:00 16:19:00 t [facility] Medicine Outpati ent Clinics 2019-04-03 2019-04-03 [facility] [id number] [facility] 11:20:00 11:20:00 t [facility] Outpati ent Clinics 2019-01-02 2019-01-02 [facility] [id number] 10:40:00 10:40:00 t [facility] Outpati ent Clinics 2018-12-20 2018-12-20 [facility] [id number] 14:58:00 14:58:00 t [facility] Outpati ent Clinics 2018-12-20 2018-12-20 [place] [id number] 11:30:00 11:30:00 t [facility] Results This patient has no known results.
--- OUTSIDE RECORDS SUMMARY | 2020-07-12 17:37 | XMS REPORT | Summary of Care ---
:1975 Author Organization [facility] - [facility] Address [address] [place] [id number] Care Team Providers Name Role Phone Duke Escobar Primary Care Provider Reason for Referral (Routine) Status Reason Specialty Diagnoses / Referred By Referred To Procedures Contact Contact Pending Review IM-CARDIOVASCULA Diagnoses Chest pain, unspecified type Nwokedi, Deonna, R DISEASE Procedures Discharge Follow-Up: Specialty Service IM-CARDIOVASCULAR DISEASE; [address] [address] (Routine) Status Reason Specialty Diagnoses / Referred By Referred To Procedures Contact Contact Pending Review Diagnoses Chest pain, unspecified type Nwokedi, Deonna, Patricia Escobar Procedures Discharge Follow-up: PCP PATRICIA ESCOBAR; 2 Weeks DEAN MARTINEZ [address] [place] [address] [place], [place] VERONICA, Oseas X [phone] Phone: Radiology Services (Routine) Status Reason Specialty Diagnoses / Referred By Referred To Procedures Contact Contact Closed Diagnostic Diagnoses Chest pain, unspecified type Geoffrey, Qiangjun, Radiology Procedures NM MYOCARDIUM PERFUSION STRESS AND REST [address] [facility] [address] [place] [address] (Routine) Status Reason Specialty Diagnoses / Referred By Referred To Procedures Contact Contact New Request Echocardiograph Diagnoses Chest pain, unspecified type Johnny Escoto, Procedures ECHO ROUTINE W/DOPPLER COLOR [address] [place] [phone] Radiology Services (STAT) Status Reason Specialty Diagnoses / Referred By Referred To Procedures Contact Contact New Request Diagnostic Diagnoses Chest pain, unspecified type Frederic Victoria, Radiology Procedures XR CHEST 1 VW DO [address] [place] [address]. [address] [place] [address] Reason for Visit Reason Comments Chest Pain Auth/Cert Status Reason Specialty Diagnoses / Referred By Referred To Procedures Contact Contact Emergency Medicine [facility] Dept [address] [place] [address] Fax: Encounter Details Date Type Department Care Team Description 05/08/2020 - Emergency ADC Medicine Surgery Delta Victoria llip, DO [address] [place] [address]. [address] [place] [address] [phone] Chest pain 05/09/2020 Unit Johnny Escoto MD [address] [place] [phone] [place] [phone] Allergies No Known Allergiesdocumented as of this encounter (statuses as of 05/09/2020) Medications Medication Sig Dispensed Refills Start Date End Date Status Omeprazole 20 mg Take 1 tab PO 30 tablet 0 03/01/2018 Active tabletIndications every morning : Heartburn lisinopril 2.5 mg Take 1 tablet 90 tablet 1 05/10/2020 Active tabletIndications by mouth daily. : Hypertension, unspecified type sulfamethoxazole- Take 1 tablet 14 tablet 0 06/06/2018 020 Discontinued trimethoprim by mouth every 800-160 mg per 12 (twelve) tablet hours. ibuprofen 800 mg Take 1 tablet 21 tablet 0 06/06/2018 05/08/20 20 Discontinued tablet by mouth every 8 (eight) hours as needed for Pain (scale 4-6). albuterol 90 Inhale 2 Puffs 8.5 g 0 10/19/2018 05/08/2020 Discontinued mcg/actuation every 4 (four) inhalerIndication hours as needed s: Viral URI with for Wheezing or cough Shortness of Breath. amoxicillin 500 Take 1 capsule 30 capsule 0 05/04/2019 020 Discontinued mg by mouth 3 capsuleIndication (three) times s: Sore throat, daily. Acute pharyngitis, unspecified etiology traMADol 50 mg Take 1 tablet 30 tablet 0 05/04/2019 05/09/2020 Discontinued tabletIndications by mouth every : Sore throat, 6 (six) hours Acute as needed for pharyngitis, Pain (scale unspecified 4-6). etiology documented as of this encounter (statuses as of 05/09/2020) Active Problems Problem Noted Date Essential hypertension 05/09/2020 Cardiomyopathy 05/09/2020 Chest pain 05/08/2020 Obesity (BMI 30-39.9) 05/08/2020 KAMRON (obstructive sleep apnea) 05/02/2018 Prediabetes 02/23/2018 documented as of this encounter (statuses as of 05/09/2020) Immunizations Name Administration Dates Next Due Td 05/23/2018 documented as of this encounter Social History Tobacco Use Types Packs/Day Years Used Date Never Smoker Smokeless Tobacco: Never Used Alcohol Use Drinks/Week oz/Week Comments Yes 0 Standard drinks or equival ent 6.0 6 Cans of beer Sex Assigned at Date Recorded Not on file COVID-19 Exposure Response Date Recorded In the last month, have you been in contact with No / Unsure 05/08/2020 5:24 PM CDT someone who was confirmed or suspected to have Coronavirus / COVID-19? 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 Chest Pain, Uncertain Cause (Uzbek)Chest Pain, Noncardiac (Uzbek)Lisinopril tablets (Uzbek)documented in this encounter H&P Notes Deonna Bird AGACNP - 05/08/2020 5:43 PM CDT Date of Service: 05/08/2020 CHIEF COMPLAINT: chest pain HISTORY OF PRESENT ILLNESS Liborio Martinez is a 45 year old male with past medical history listed below who presentedto the Ed with complaints intermittent left sided chest pain that shoots down to his left leg . Pain is 6/10 and onset was 3 days ago. Denies any associating symptoms of fever, headache, sob, dizziness, palpitations and shortness of breath. PAST MEDICAL HISTORY Past Medical History: Diagnosis Date Eczema Hemorrhoid HTN (hypertension) treated with healthy lifestyle, stopped meds > 7 years ago PAST SURGICAL HISTORY Past Surgical History: Procedure Laterality Date HAND/FINGER SURGERY UNLISTED 11 y/o UROLOGY SURGERY PROCEDURE UNLISTED ALLERGIES No Known Allergies MEDICATIONS *Current home medication list reviewed: Patient's Medications START taking these medications No medications on file CONTINUE taking these medications which have NOT CHANGED ALBUTEROL 90 MCG/ACTUATION INHALER Inhale 2 Puffs every 4 (four) hours as needed for Wheezing orShortness of Breath. AMOXICILLIN 500 MG CAPSULE Take 1 capsule by mouth 3 (three) times daily. IBUPROFEN 800 MG TABLET Take 1 tablet by mouth every 8 (eight) hours as needed for Pain (scale 4-6). OMEPRAZOLE 20 MG TABLET Take 1 tab PO every morning SULFAMETHOXAZOLE-TRIMETHOPRIM 800-160 MG PER TABLET Take 1 tablet by mouth every 12 (twelve) hours. TRAMADOL 50 MG TABLET Take 1 tablet by mouth every 6 (six) hours as needed for Pain (scale 4-6). START taking Modified Medications as Prescribed No medications on file STOP taking these medications No medications on file FAMILY HISTORY Family History Problem Relation Age of Onset No Significant Medical Problems Mother No Significant Medical Problems Father Kidney failure Paternal Uncle Diabetes Maternal Grandmother Kidney failure Maternal Grandmother SOCIAL HISTORY Social History Socioeconomic History Marital status: Spouse name: Not on file Number of children: Not on file Years of education: Not on file Highest education level: Not on file Occupational History Not on file Social Needs Financial resource strain: Not on file Food insecurity Worry: Not on file Inability: Not on file Transportation needs Medical: Not on file Non-medical: Not on file Tobacco Use Smoking status: Never Smoker Smokeless tobacco: Never Used Substance and Sexual Activity Alcohol use: Yes Alcohol/week: 6.0 standard drinks Types: 6 Cans of beer per week Drug use: No Sexual activity: Not on file Lifestyle Physical activity Days per week: Not on file Minutes per session: Not on file Stress: Not on file Relationships Social connections Talks on phone: Not on file Gets together: Not on file Attends scientologist service: Not on file Active member of club or organization: Not on file Attends meetings of clubs or organizations: Not on file Relationship status: Not on file Intimate partner violence Fear of current or ex partner: Not on file Emotionally abused: Not on file Physically abused: Not on file Forced sexual activity: Not on file Other Topics Concern Not on file 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 Soft, NTND, Positive BS x4 quadrants Genitourinary: no distention EXTM: without Clubbing or edema SKIN: without rashes or lesions Neuro: Alert and oriented, w/o focal deficits Psych: Normal affect LABS - reviewed pertinent labs as below: CBC BMP PT/INR WBC (10*3/L) Date Value 05/08/2020 8.50 NA (mmol/L) Date Value 05/08/2020 138 No results found for: PT RBC (10*6/L) Date Value 05/08/2020 4.95 K (mmol/L) Date Value 05/08/2020 3.5 INR (no units) Date Value 05/08/2020 1.1 PLT (10*3/L) Date Value 05/08/2020 332 (H) CALCIUM (mg/dL) Date Value 05/08/2020 8.8 HGB (g/dL) Date Value 05/08/2020 13.0 CL (mmol/L) Date Value 05/08/2020 106 aPTT HCT (%) Date Value 05/08/2020 40.3 BUN (mg/dL) Date Value 05/08/2020 15 APTT Patient (Seconds) Date Value 05/08/2020 27 CREATININE (mg/dL) Date Value 05/08/2020 0.94 IMAGING - reviewed, pertinent results as below: Hospital Encounter on 05/08/20 XR CHEST 1 VW Narrative HISTORY: Chest pain. TECHNIQUE: 2 Portable AP erect views of the chest were obtained. No prior chest study available for comparison. FINDINGS: No acute pneumonia. No pneumothorax or pleural effusion or pulmonary congestion detected. Cardiac size is within upper limits of normal with left ventricular preponderance. CONCLUSIONS: No signs of acute cardiopulmonary disease. ASSESSMENT/PLAN Active problems Chest pain Bradycardia Hypertension boarderline diabetes Obesity chest pain with bradycardia, possibly type 2 NSTEMI R/O acute coronary syndrome Admit on Tele Troponin negative, trend lipid level, TSH, A1C, D-dimer, echo requested and are pending Oxygen if needed, asprin, atorvastatin sublingual nitrate and morphin Bradycardia, will hold betablocker.Add lisinopril Cardiology consulted Patient does not have a PCP Will need prescription for his blood pressure medication upon discharge as he currently takes girlfriend's blood pressure medicine Prophylaxis: DVT- lovenox Stress Ulcer: not indicated Surrogate decision maker: self Level of care expected after discharge: Home Code status:Full code Non smoker Dispo Pending cardiac work up Associated attestation - Taniya Navarrete MD - 05/09/2020 5:28 AM CDTPatient was seen and physically examined. I agree with the findings and documentation provided in the above note from the nurse practitioner, Sonya Solis. 45 year- old male with pmh of HTN who presentsto ED secondary to chest pain. Management: (1) Chest pain, atypical: So, far EKG and troponin are negative for an acute myocardialinfarction. Pain control, oxygen, nitroglycerin prn, and aspirin. Trend the troponin. Echocardiogram is pending. (2) Bradycardia: holding any rate controlling agents at this time. Appears to improving. (3) HTN: resume outpatient antihypertensive agent. Cardiology has been consulted. Medicine team will continue to provide daily care. documented in this encounter Procedure Notes Narendra Daugherty, QUEENIE - 05/09/2020 10:13 AM CDTChristopher Alden Martinez is a 45 year old male received to Nuclear Medicine for Stress Test. Pt is AAOx4 and is in NAD. Pt identified using Name & . Pt endorses being NPO since 05/08/20. Indication for this Stress Test is Chest pain, chronic, high prob of CAD. Last caffeine intake @ 05/08/20 NM Tech monitoring is Milagro Supervising physician Geoffrey DE LA TORRE obtained consent at 1025 Time out completed 1033 Lexiscan 0.4mg/5mL injected at 1034, followed by 5mL NS flush. Pre Stress Test vitals are: BP 136/98 HR 47 Resp 18 O2 sat 99 Injection vitals are: BP 142/90 HR 88 Resp 21 O2 sat 100 Recovery vitals are: BP 144/87 HR 65 Resp 18 O2 sat 100 documented in this encounter Consult Notes Reg Bernard MD - 05/09/2020 2:50 PM CDTAssociated Order(s): CONSULT CARDIOLOGY [facility] Cardiology Consult PCP: Patricia Escobar Date of Service: 05/09/2020 CHIEF COMPLAINT/reason for consult: chest pain HISTORY OF PRESENT ILLNESS This is a 45 year-old male with PMH obesity, HTN, KAMRON and prediabetes etc. He was admitted for chestpain. For the past few days he has had intermittent left sided chest pain. Mostly non exertional, radiating to the left leg, squeezing/stabbing, rated 6/10, associated with dyspnea and sweating. Some ab dominal pain as well. EKG showed no acute changes. Troponin negative. PAST MEDICAL HISTORY Past Medical History: Diagnosis Date Eczema Hemorrhoid HTN (hypertension) treated with healthy lifestyle, stopped meds > 7 years ago Past Surgical History: Procedure Laterality Date HAND/FINGER SURGERY UNLISTED 11 y/o UROLOGY SURGERY PROCEDURE UNLISTED Family History Problem Relation Age of Onset No Significant Medical Problems Mother No Significant Medical Problems Father Kidney failure Paternal Uncle Diabetes Maternal Grandmother Kidney failure Maternal Grandmother ALLERGIES No Known Allergies MEDICATIONS No current facility-administered medications on file prior to encounter. Current Outpatient Medications on File Prior to Encounter Medication Sig Dispense Refill Omeprazole 20 mg tablet Take 1 tab PO every morning 30 tablet 0 traMADol 50 mg tablet Take 1 tablet by mouth every 6 (six) hours as needed for Pain (scale 4-6).30 tablet 0 sulfamethoxazole-trimethoprim 800-160 mg per tablet Take 1 tablet by mouth every 12 (twelve) hours. 14 tablet 0 SOCIAL HISTORY Social History Socioeconomic History Marital status: Spouse name: Not on file Number of children: Not on file Years of education: Not on file Highest education level: Not on file Occupational History Not on file Social Needs Financial resource strain: Not on file Food insecurity Worry: Not on file Inability: Not on file Transportation needs Medical: Not on file Non-medical: Not on file Tobacco Use Smoking status: Never Smoker Smokeless tobacco: Never Used Substance and Sexual Activity Alcohol use: Yes Alcohol/week: 6.0 standard drinks Types: 6 Cans of beer per week Drug use: No Sexual activity: Not on file Lifestyle Physical activity Days per week: Not on file Minutes per session: Not on file Stress: Not on file Relationships Social connections Talks on phone: Not on file Gets together: Not on file Attends scientologist service: Not on file Active member of club or organization: Not on file Attends meetings of clubs or organizations: Not on file Relationship status: Not on file Intimate partner violence Fear of current or ex partner: Not on file Emotionally abused: Not on file Physically abused: Not on file Forced sexual activity: Not on file Other Topics Concern Not on file 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 Lives at home with girlfrRebecca urbina REVIEW OF SYSTEMS General: (-) fever, (-) chills, (-) weight change, (-) dizziness, (-) fatigue Skin: (-) rash HEENT: (-) headache, (-) change in vision Neck: (-) difficulty swallowing Heme: negative Resp: (-) cough, (-) dyspnea on exertion Cardio: (+) chest pain, (-) palpitations, (-) syncope GI: (-) vomiting, (-) diarrhea : negative Endo: (-) diabetes, (-) thyroid disease Neuro: (-) numbness, (-) tingling, (-) weakness Back: (-) pain RAMIRO: (-) muscle pain, (-) claudication Psych: (-) anxiety, (-) depression PHYSICAL EXAMINATION Vitals: 05/09/20 0507 05/09/20 0753 05/09/20 0757 05/09/20 1230 BP: 129/84 (!) 140/85 138/89 Pulse: (!) 47 53 50 Resp: 18 18 18 Temp: 37.2 C (98.9 F) 36.3 C (97.3 F) 36.1 C (97 F) TempSrc: Temporal Artery Tympanic Tympanic SpO2: 99% 97% 98% 99% Weight: 129 kg (284 lb 4.8 oz) Constitutional: alert and oriented x 3 (person, place and date/time); no apparent distress, obese ENT: normocephalic atraumatic, supple, no lymphadenopathy, no bruits, no JVD Lungs: clear to auscultation bilaterally Cardiovascular: S1, S2 normal, regular; no murmurs, rubs or gallops GI: soft; non-tender; non-distended; normoactive bowel sounds : not examined Musculoskeletal: Extremities: no clubbing, cyanosis, or edema Skin: no rashes Neuro: no focal deficits LABS - reviewed pertinent labs as below: CBC BMP PT/INR WBC (10*3/L) Date Value 05/08/2020 8.50 NA (mmol/L) Date Value 05/08/2020 138 No results found for: PT PLT (10*3/L) Date Value 05/08/2020 332 (H) K (mmol/L) Date Value 05/08/2020 3.5 INR (no units) Date Value 05/08/2020 1.1 HGB (g/dL) Date Value 05/08/2020 13.0 BUN (mg/dL) Date Value 05/08/2020 15 HCT (%) Date Value 05/08/2020 40.3 CREATININE (mg/dL) Date Value 05/08/2020 0.94 LIPID PROFILE GLUCOSE (mg/dL) Date Value 05/08/2020 133 (H) CHOL (mg/dL) Date Value 05/08/2020 170 TSH LDL CHOL (mg/dL) Date Value 05/08/2020 107 TSH (mIU/L) Date Value 05/08/2020 1.98 CARDIAC ENZYMES HDL (mg/dL) Date Value 05/08/2020 37 (L) No results found for: CK TRIG (mg/dL) Date Value 05/08/2020 128 LFTs No results found for: CKMB AST(SGOT) (U/L) Date Value 05/08/2020 39 TROPONIN I (ng/mL) Date Value 05/09/2020 <0.012 ALT(SGPT) (U/L) Date Value 02/23/2018 42 ALTv (U/L) Date Value 05/08/2020 30 No results found for: BNP EKG: Sinus bradycardia, inferior infarct ASSESSMENT/PLAN Principal Problem: Chest pain Active Problems: Prediabetes KAMRON (obstructive sleep apnea) Obesity (BMI 30-39.9) Essential hypertension Cardiomyopathy Chest pain--Atypical. NO acute EKG changes. MO ruled out by negative troponin. ECHO showed LVEF 45-50%. Nuclear stress test showed no reversible ischemia. HTN--recommend ACEI for BP control. Cardiomyopathy--mild. No clinical heart failure. Recommend lisinopril. KAMRON--recommend C-PAP and weight loss. Obesity--discussed diet, exercise and weight loss. Thank you for allowing us to participate in the care of your patient. Please feel free to contact usfor any questions or if we can be of further assistance. Reg Bernard MD, [facility], ART Asset Manager, Division of Cardiology [facility] documented in this encounter ED Notes Gill Melchor RN - 05/08/2020 3:18 PM CDTPatient arrived via private car with c/o chest pain. Patient states that when he was 19 he "had to be brought back to life" after "taking a lot of pills" Patient states when he was discharged after the incident that he was told he would likely have cardiac problems. Patient states he never saw a equipment sterilizer "because I [facility] pen[facility] States that the chest pain has been for "a couple of days". Edna Frederic, DO - 05/08/2020 3:12 PM CDT EMERGENCY DEPARTMENT ENCOUNTER [facility] Patient Name: Liborio Martinez Date of : 1975 45 year old Exam Room:RUST/RUST Primary Care Physician: Patricia Escobar Pre- Hospital Patient Escorted by: Self [9] Mode of Arrival: Personal means [1] EMS Treatment Prior to ED Arrival: Chief Complaint Chief Complaint Patient presents with Chest Pain HPI Liborio Martinez is a 45 year old male presenting with chest pain for 3 days. No history ofCAD. Has HTN, borderline DM. Takes BP medications. Pain is substernal and described as discomfort. Course is intermittint. Non-radiating. No provacative testing previously. No equipment sterilizer. Past Medical History / Immunizations Past Medical History: Diagnosis Date Eczema Hemorrhoid HTN (hypertension) treated with healthy lifestyle, stopped meds > 7 years ago Past Surgical History Past Surgical History: Procedure Laterality Date HAND/FINGER SURGERY UNLISTED 11 y/o UROLOGY SURGERY PROCEDURE UNLISTED Allergies No Known Allergies Social History Tobacco Use Never smoked or used smokeless tobacco. Alcohol Use Yes; 6.0 standard drinks of alcohol per week; 0 Standard drinks or equivalent, 6 Cans of beer. Drug Use No. Review of Systems Review of Systems Constitutional: Negative for activity change, appetite change, chills, diaphoresis and fever. HENT: Negative for sore throat and voice change. Eyes: Negative for pain and visual disturbance. Respiratory: Negative for cough, chest tightness and shortness of breath. Cardiovascular: Positive for chest pain. Negative for leg swelling. Gastrointestinal: Negative for abdominal pain, blood in stool, constipation and diarrhea. Genitourinary: Negative for dysuria, urgency and difficulty urinating. Musculoskeletal: Negative for back pain. Skin: Negative for color change, rash and wound. Neurological: Negative for dizziness and headaches. Hematological: Does not bruise/bleed easily. Physical Exam BP 132/88 | Pulse 66 | Temp 36.3 C (97.3 F) (Oral) | Resp 18 | Wt 124.7 kg (275 lb) | SpO2 98% | BMI 38.35 kg/m Physical Exam Vitals signs and nursing note reviewed. Constitutional: Appearance: He is well-developed. HENT: Head: Normocephalic and atraumatic. Eyes: General: No scleral icterus. Conjunctiva/sclera: Conjunctivae normal. Pupils: Pupils are equal, round, and reactive to light. Neck: Musculoskeletal: Normal range of motion and neck supple. Vascular: No JVD. Cardiovascular: Rate and Rhythm: Normal rate and regular rhythm. Heart sounds: Normal heart sounds. Pulmonary: Effort: Pulmonary effort is normal. Breath sounds: Normal breath sounds. No stridor. Abdominal: General: Bowel sounds are normal. Palpations: Abdomen is soft. Musculoskeletal: Normal range of motion. Skin: General: Skin is warm and dry. Neurological: Mental Status: He is alert and oriented to person, place, and time. Psychiatric: Behavior: Behavior normal. Thought Content: Thought content normal. Labs Recent Results (from the past 24 hour(s)) TROPONIN I Collection Time: 05/08/20 3:46 PM Result Value Ref Range TROPONIN I <0.012 <=0.034 ng/mL aPTT Collection Time: 05/08/20 3:46 PM Result Value Ref Range APTT Patient 27 23 - 38 Seconds PROTHROMBIN TIME / INR Collection Time: 05/08/20 3:46 PM Result Value Ref Range PROTIME PATIENT 13.5 12.0 - 14.7 Seconds INR 1.1 COMP. METABOLIC PANEL (97782) Collection Time: 05/08/20 3:46 PM Result Value Ref Range NA 138 135 - 145 mmol/L K 3.5 3.5 - 5.0 mmol/L CL 106 98 - 108 mmol/L CO2 TOTAL 26 23 - 31 mmol/L AGAP 6 2 - 16 BUN 15 7 - 23 mg/dL GLUCOSE 133 (H) 70 - 110 mg/dL CREATININE 0.94 0.60 - 1.25 mg/dL TOTAL BILI 0.2 0.1 - 1.1 mg/dL CALCIUM 8.8 8.6 - 10.6 mg/dL T PROTEIN 7.6 6.3 - 8.2 g/dL ALBUMIN 4.2 3.5 - 5.0 g/dL ALK PHOS 71 34 - 122 U/L ALTv 30 5 - 50 U/L AST(SGOT) 39 13 - 40 U/L eGFR Calculation (Non-) 86.0 mL/min/1.73m2 eGFR Calculation () 104.3 mL/min/1.73m2 LIPASE, SERUM Collection Time: 05/08/20 3:46 PM Result Value Ref Range LIPASE 43 0 - 220 U/L CBC WITH DIFF Collection Time: 05/08/20 3:46 PM Result Value Ref Range WBC 8.50 4.20 - 10.70 10*3/L RBC 4.95 4.26 - 5.52 10*6/L HGB 13.0 12.2 - 16.4 g/dL HCT 40.3 38.4 - 49.3 % MCV 81.4 (L) 81.7 - 95.6 fL MCH 26.3 26.1 - 32.7 pg MCHC 32.3 31.2 - 35.0 g/dL RDW-SD 41.6 38.5 - 51.6 fL RDW-CV 14.2 12.1 - 15.4 % PLT 332 (H) 150 - 328 10*3/L MPV 9.4 (L) 9.8 - 13.0 fL NRBC/100 WBC 0.0 0.0 - 10.0 /100 WBCs NRBC x10^3 <0.01 10*3/L GRAN MAT (NEUT) % 64.0 % IMM GRAN % 0.40 % LYMPH % 25.8 % MONO % 5.8 % EOS % 3.6 % BASO % 0.4 % GRAN MAT x10^3(ANC) 5.45 1.99 - 6.95 10*3/uL IMM GRAN x10^3 0.03 0.00 - 0.06 10*3/uL LYMPH x10^3 2.19 1.09 - 3.23 10*3/uL MONO x10^3 0.49 0.36 - 1.02 10*3/uL EOS x10^3 0.31 0.06 - 0.53 10*3/uL BASO x10^3 0.03 0.01 - 0.09 10*3/uL MAGNESIUM Collection Time: 05/08/20 3:46 PM Result Value Ref Range MAGNESIUM 2.2 1.7 - 2.4 mg/dL Imaging Hospital Encounter on 05/08/20 XR CHEST 1 VW Narrative HISTORY: Chest pain. TECHNIQUE: 2 Portable AP erect views of the chest were obtained. No prior chest study available for comparison. FINDINGS: No acute pneumonia. No pneumothorax or pleural effusion or pulmonary congestion detected. Cardiac size is within upper limits of normal with left ventricular preponderance. CONCLUSIONS: No signs of acute cardiopulmonary disease. Orders and Treatments Orders Placed This Encounter Procedures XR CHEST 1 VW TROPONIN I aPTT PROTHROMBIN TIME / INR COMP. METABOLIC PANEL (11347) LIPASE, SERUM CBC WITH DIFF MAGNESIUM COVID-19 (ID NOW RAPID TESTING) O2 Per Protocol No orders of the defined types were placed in this encounter. Procedures See ED Procedure Note Notes & MDM Patient was evaluated for an emergency medical condition related to Chest Pain . Differential diagnoses considered by presenting complaints but not limited to: ACS, Unstable angina, HTN, Infection NOS, MSK pain, and others. Labs:were ordered, and resulted, any relevant abnormalities were considered. Imaging:Ordered, and resulted, any relevant abnormalities were considered. IV fluids: not indicated Procedures:were not performed. EK:31 Rate 55. Sinus Bradycardia. IRBBB. 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 Normal axis. No STchanges. Rhythm Strip Interpretation: 66 Normal Sinus Rhythm Pulse Oximetry room air Assessment: Liborio Martinez is a 45 year old male with no previous CAD. 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 No previous evaluation. Patient to be admitted for further evaluation and management. ACS rule out. History, physical exam findings, results of visit, differential diagnosis, medication regimens and plan of future care have been considered. Additional MDM may be found in the ED course. Differential diagnosis considered and final disposition made based on information gathered during evaluation and may not be completely ruled out or specifically listed. Vital signs were rechecked before final disposition and determined to be stable. Diagnosis ICD-10-CM ICD-9-CM 1. Chest pain, unspecified type R07.9 786.50 Disposition & Follow Up ED Disposition ED Disposition Condition Comment Admit - Observation Stable Patients undergoing COVID-19 testing are cared for in a designated unit and care team. Is this patient being tested for COVID-19?: No Treatment Team: [facility] [[id number]] Primary reason for admission: Chest pain [585764] Is (or was) this a planned re- admission?: No Patient's Medications START taking these medications No medications on file CONTINUE taking these medications which have NOT CHANGED ALBUTEROL 90 MCG/ACTUATION INHALER Inhale 2 Puffs every 4 (four) hours as needed for Wheezing orShortness of Breath. AMOXICILLIN 500 MG CAPSULE Take 1 capsule by mouth 3 (three) times daily. IBUPROFEN 800 MG TABLET Take 1 tablet by mouth every 8 (eight) hours as needed for Pain (scale 4-6). OMEPRAZOLE 20 MG TABLET Take 1 tab PO every morning SULFAMETHOXAZOLE-TRIMETHOPRIM 800-160 MG PER TABLET Take 1 tablet by mouth every 12 (twelve) hours. TRAMADOL 50 MG TABLET Take 1 tablet by mouth every 6 (six) hours as needed for Pain (scale 4-6). START taking Modified Medications as Prescribed No medications on file STOP taking these medications No medications on file Frederic Victoria DO 05/08/2020 4:48 PM ACTIVE COVID-19 PANDEMIC. documented in this encounter Miscellaneous Notes Care Plan - Haritha Kimball RN - 05/09/2020 8:01 AM CDT Problem: Discharge Planning Goal: Absence of venous thromboembolism Outcome: Progressing as expected Goal: Adequate for discharge Outcome: Progressing as expected Goal: Adequate to move to next level of care Outcome: Progressing as expected Goal: Knowledge of medication management Outcome: Progressing as expected Problem: Cardiac Output - Decreased Goal: Absence of signs and symptoms of decreased cardiac output Outcome: Progressing as expected Problem: Falls, Risk of Goal: Absence of falls Outcome: Progressing as expected Problem: Pain Goal: Control of pain at or below patient's documented comfort goal Outcome: Progressing as expected Goal: Reduction in pain sensation Outcome: Progressing as expected Problem: Skin integrity Impaired (Risk or Actual) Goal: Prevention of new skin breakdown Outcome: Progressing as expected Problem: Tissue Perfusion, Cardiopulmonary - Altered Goal: Circulatory function within specified parameters Outcome: Progressing as expected Problem: Respiratory Function - Impaired Goal: Able to cough effectively Outcome: Progressing as expected Goal: Adequate oxygenation Outcome: Progressing as expected are Plan - Amelie Hernandez RN - 05/09/2020 1:34 AM CDTRemains stable at this time, resting well. D Nurse Note - Kerri Tavares RN - 05/08/2020 6:30 PM CDTPatient admitted to [facility] for diagnosis of chest pain. Patient agrees to admission, discussed plan of care with patient and family. Patient is awake, alert, oriented, resp reg unlabored, color appropriate for race, PIV intact. No adverse reaction to medications administered while in ED. Belongings with patient to unit. Report to claudia JEROME. ursing Note - Claudia Evans RN - 05/08/2020 6:27 PM CDTPatient arrived from ED. Ambulatory in room. Awake, alert, oriented x4. No complaints of chest pain at this time. No signs of distress. Oriented to room. Changed into patient gown. D Nurse Note - Niyah Sher RN - 05/08/2020 6:20 PM CDTPt report to Claudia Evans RN. documented in this encounter Plan of Treatment Health Maintenance Due Date Last Done Comments Depression Screening 1985 DTaP,Tdap,and Td Vaccines (1 - 02/29/1992 05/23/2018 Tdap) INFLUENZA VACCINE (#1) 2020 Colorectal Cancer Screening 2023 PNEUMOCOCCAL 0-64 YEARS COMBINED Aged Out No longer eligible based on SERIES patient's age to complete this topic documented as of this encounter Procedures Procedure Name Priority Date/Time Associated Comments Diagnosis TROPONIN I Routine 05/09/2020 12:49 Results for this PM CDT procedure are i n the results section. ECHO ROUTINE W/DOPPLER Routine 05/09/2020 11:36 Chest pain, COLOR AM CDT unspecified type NM MYOCARDIUM Routine 05/09/2020 11:30 Chest pain, Results fo r this PERFUSION STRESS AND AM CDT unspecified type pro cedure are in REST the results section. SERUM DRUG STAT 05/09/2020 2:10 Results for this (IMMUNOASSAY) - AM CDT procedure ar e in COMPREHENSIVE DRUG the resul ts SCREEN section. TROPONIN I Routine 05/09/2020 2:10 Results for this AM CDT procedure are i n the results section. COVID-19 (ID NOW RAPID Routine 05/08/2020 5:12 Chest pain, R esults for this TESTING) PM CDT unspecified type procedure a re in the results section. XR CHEST 1 VW STAT 05/08/2020 3:55 Chest pain, Results fo r this PM CDT unspecified type procedure a re in the results section. ACTIVATED PARTIAL STAT 05/08/2020 3:46 Chest pain, Result s for this THRMPLAS ELEANOR PM CDT unspecified type procedure a re in the results section. D-DIMER Add-on 05/08/2020 3:46 Results for this PM CDT procedure are i n the results section. PROTHROMBIN TIME / INR STAT 05/08/2020 3:46 Chest pain, R esults for this PM CDT unspecified type procedure a re in the results section. GLYCOSYLATED Add-on 05/08/2020 3:46 Results for this HEMOGLOBIN (A1C) PM CDT procedure a re in the results section. CBC WITH DIFF STAT 05/08/2020 3:46 Chest pain, Results fo r this PM CDT unspecified type procedure a re in the results section. LIPID PANEL Add-on 05/08/2020 3:46 Results for this (87186)(TOTAL PM CDT procedure are in CHOLESTEROL, the results TRIGLYCERIDES, HDL) section. COMP. METABOLIC PANEL STAT 05/08/2020 3:46 Chest pain, Re sults for this (21119) PM CDT unspecified type procedure a re in the results section. THYROID STIMULATING Add-on 05/08/2020 3:46 Resu lts for this HORMONE PM CDT procedure are i n the results section. TROPONIN I STAT 05/08/2020 3:46 Chest pain, Results for this PM CDT unspecified type procedure a re in the results section. MAGNESIUM STAT 05/08/2020 3:46 Chest pain, Results for this PM CDT unspecified type procedure a re in the results section. LIPASE STAT 05/08/2020 3:46 Chest pain, Results for this PM CDT unspecified type procedure a re in the results section. EKG-12 LEAD STAT 05/08/2020 3:25 PM CDT NOTICE OF PRIVACY Routine 05/08/2020 3:12 PRACTICES PM CDT documented in this encounter Results TROPONIN I (05/09/2020 12:49 PM CDT) Pathologist Sig nature TROPONIN I <0.012 <=0.034 ng/mL [facility] Specimen Blood - ARM, RIGHT Narrative Performed At Equal or Less than 0.034 ng/ml---Normal [facility] Note: Cardiac troponin begins to rise 3-4 hours after the onset of ischemia. Repeat in 4-6 hours if the sample was drawn within 3-4 hours of the onset of the symptom and found normal. Between 0.035 and 0.120 ng/mL--- Borderline. Questionable myocardial injury or necros is Note: Serial measurement may be necessary to confirm or exclude the diagnosis of myocardial injury or necrosis; Clinical correlation (symptoms, EKGs, imaging studies, and others) required; Repeat in 4-6 hours if clinically indicated. Equal or Higher than 0.121 ng/mL---Abnormal. Myocardial Injury or Necrosis Likely Biotin has been reported to cause a negative bias, interpret results relative to patient's use of biotin. Performing Organization Address City/State/Zipcode Phone Number [facility] CLIA: [id number] [place] [address] [place] [address] MYOCARDIUM PERFUSION STRESS AND REST (05/09/2020 11:30 AM CDT) Specimen Impressions Performed At Impression: PACS/VR/DOSE Normal myocardial perfusion scan with pr eserved ejection fraction and normal wall thickening. Mildly enlarged left ventricle. I was present for the stress procedure. Narrative Performed At Pharmacological stress myocardial perfus ion imaging report PACS/VR/DOSE Type: Technetium 99 labeled Myoview rest /stress single isotope SPECT imaging with Ragadenoson pharmacological stress and gated SPECT imaging. Indication: chest pain Clinical history: History of hypertensio n Procedure: Pharmacological stress test was performe d with a bolus dose of 0.4 mg of Ragadenoson. Gated myocardial perfusion imaging was performed at rest following the injection of 16.1 millicuries of technet ium labeled Myoview and post stress following the injection of 41.6 millic uries of technetium labeled tetrofosmin. Findings: The overall quality of the study was goo d. Stress EKG revealed no inducible ischemi a, reported separately. SPECT images demonstrate homogeneous tra cer distribution throughout the myocardium. Gated SPECT images demonstrate normal wa ll motion and myocardial thickening. Stress Values: EDV = 163 mL; ESV = 89 mL; EF = 45%. Rest Values: EDV = 165 mL; ESV = 81 mL ; EF = 51%. Procedure Note [facility], Radiant Results Inft User - 2019 12:12 PM CDT Pharmacological stress myocardial perfusion imaging report Type: Technetium 99 labeled Myoview rest /stress single isotope SPECT imaging with Ragadenoson pharmacological stress and gated SPECT imaging. Indication: chest pain Clinical history: History of hypertensio n Procedure: Pharmacological stress test was performe d with a bolus dose of 0.4 mg of Ragadenoson. Gated myocardial perfusion imaging was performed at rest following the injection of 16.1 millicur ies of technetium labeled Myoview and post stress following the injection of 41.6 millicuries of technetium labeled tetrofosmin. Findings: The overall quality of the study was goo d. Stress EKG revealed no inducible ischemi a, reported separately. SPECT images demonstrate homogeneous tra cer distribution throughout the myocardium. Gated SPECT images demonstrate normal wa ll motion and myocardial thickening. Stress Values: EDV = 163 mL; ESV = 89 m L; EF = 45%. Rest Values: EDV = 165 mL; ESV = 81 mL; EF = 51%. IMPRESSION Impression: Normal myocardial perfusion scan with pr eserved ejection fraction and normal wall thickening. Mildly enlarged left ventricle. I was present for the stress procedure. Performing Organization Address City/State/[facility] Phone Number PACS/VR/DOSE Drug Screen Panel 3 Serum (05/09/2020 2:10 AM CDT) Pathologist Sig nature VLADIMIR S Negative Negative [facility] BENZO S Negative Negative [facility] TRICYCLIC Negative Negative [facility] Specimen Blood - VENOUS Narrative Performed At Serum Drug Screen Cutoff Ranges [facility] Barbiturates - 3 mcg/mL Benzodiazepines - 50 ng/mL TCA - 300 ng/mL Test developed and characteristics determined by [facility]. The results are to be used only for medical (i.e., treatment) purposes. Unconfirmed screening results mus t not be used for non-medical purposes (e.g., employment nia ting, legal testing). Performing Organization Address City/State/Zipcode Phone Number [facility] CLIA: [id number] [place] [address] [place] [address] TROPONIN I (05/09/2020 2:10 AM CDT) Pathologist Sig nature TROPONIN I 0.023 <=0.034 ng/mL [facility] Specimen Blood - VENOUS Narrative Performed At Equal or Less than 0.034 ng/ml---Normal [facility] Note: Cardiac troponin begins to rise 3-4 hours after the onset of ischemia. Repeat in 4-6 hours if the sample was drawn within 3-4 hours of the onset of the symptom and found normal. Between 0.035 and 0.120 ng/mL--- Borderline. Questionable myocardial injury or necros is Note: Serial measurement may be necessary to confirm or exclude the diagnosis of myocardial injury or necrosis; Clinical correlation (symptoms, EKGs, imaging studies, and others) required; Repeat in 4-6 hours if clinically indicated. Equal or Higher than 0.121 ng/mL---Abnormal. Myocardial Injury or Necrosis Likely Biotin has been reported to cause a negative bias, interpret results relative to patient's use of biotin. Performing Organization Address City/State/Zipcode Phone Number [facility] CLIA: [id number] [place] [address] COVID-19 (ID NOW RAPID TESTING) (05/08/2020 5:12 PM CDT) SARS-CoV-2 Rapid ID Not Detected Not Detected [facility] Specimen Swab - NASOPHARYNGEAL SWAB Narrative Performed At ID NOW COVID-19 Assay is an isothermal nucleic [facility] acid amplification test intended for the qualitative detection of nucleic acid from SARS-CoV-2 viral RNA in nasopharyngeal (OYSTER FLOATER) specimens. It is used under Emergency Use Authorization (EUA) by FDA. The limit of detection (LOD) of the assay is 125 Genome Equivalents/mL. A positive result is indicative of the presence of SARS-CoV-2 RNA. Clinical correlation with patient history and other diagnostic information is necessary to determine patient infection status. A negative (Not Detected) result does not preclude SARS-CoV-2 infection. In patients with clinical symptoms and other tests that are consistent with SARS-CoV-2 infection, negative results should be treated as presumptive negative and a new specimen should be tested with alternative PCR molecular test. Invalid: Please collect a new specimen for repeat patient testing if clinically indicated. Performing Organization Address [facility]/Zipcode Phone Number [facility] CLIA: [id number] [place] [address] XR CHEST 1 VW (05/08/2020 3:55 PM CDT) Specimen Narrative Performed At HISTORY: Chest pain. PACS/VR/DOSE TECHNIQUE: 2 Portable AP erect views of the chest were obtained. No prior chest study available for comparison. FINDINGS: No acute pneumonia. No pneumot horax or pleural effusion or pulmonary congestion detected. Cardiac s ize is within upper limits of normal with left ventricular preponderan ce. CONCLUSIONS: No signs of acute cardiopulmonary disease . Procedure Note [facility], Radiant Results Inft User - 2019 3:58 PM CDT HISTORY: Chest pain. TECHNIQUE: 2 Portable AP erect views of the chest were obtained. No prior chest study available for comparison. FINDINGS: No acute pneumonia. No pneumot horax or pleural effusion or pulmonary congestion detected. Cardiac s ize is within upper limits of normal with left ventricular preponderan ce. CONCLUSIONS: No signs of acute cardiopul monary disease. Performing Organization Address [facility] Phone Number PACS/VR/DOSE D-DIMER (05/08/2020 3:46 PM CDT) [facility] Sig nature D-DIMER 0.30 <0.41 g/mL (FEU) [facility] Specimen Blood - VENOUS Narrative Performed At This test may be used in conjunction with a [facility] clinical pretest probability (PTP) assessment model to exclude venous thromboembolism (VTE) in patients suspected of deep venous thrombosis (DVT) and pulmonary embolism (PE) A D-Dimer value less than 0.50 g/ml (FEU) has a negative predicative value of 96 to 100% (95% CI)and 97 to 100% (95% CI) as an aid in the diagnosis of deep vein thrombosis (DVT) and pulmonary embolism when there is low or moderate pretest probability of PE or DVT. D-Dimer values are expressed in initial fibrinogen equivalent units (FEU)" The assay results should be used with other information, including the clinical context, in forming a diagnosis. Performing Organization Address City/State/[facility] Cent[facility]ode Phone Number [facility] CLIA: [id number] [place] [address] Thyroid Stimulating Hormone (TSH) (05/08/2020 3:46 PM CDT) Pathologist Sig Sensee TSH 1.98Comment: Biotin 0.45 - 4.70 [facility] has been reported [facility] to cause a negative bias, interpret results relative to patient's use of biotin. Specimen Blood - VENOUS Performing Organization Address [facility] Phone Number [facility] CLIA: [id number] [place] [address] Lipid Panel (Total Cholesterol, Triglycerides, HDL) (05/08/2020 3:46 PM CDT) Pathologist Sig Sensee CHOL 170 120 - 200 mg/dL [facility] HDL 37 (L) >40 mg/dL [facility] HDLC RATIO 4.6 <=5.0 [facility] TRIG 128 30 - 170 mg/dL [facility] LDL CHOL 107 <=160 mg/dL [facility] VLDL 26 5 - 60 mg/dL [facility] Specimen Blood - VENOUS Performing Organization Address [facility] Phone Number [facility] CLIA: [id number] [place] [address] Glycosylated Hemoglobin (A1C) (05/08/2020 3:46 PM CDT) Pathologist Sig Sensee HGB A1C 5.8 4.0 - 6.0 % [facility] Specimen Blood - VENOUS Narrative Performed At %A1C (NGSP) Interpretation (ADA) [facility] 4.8-5.6 Normal or (Non-Diabetic Ra nge) 5.7-6.4 Increased Risk (Pre-Diabet ic) >6.5 Diabetes Indicated Performing Organization Address [facility] Phone Number [facility] CLIA: [id number] [place] [address] MAGNESIUM (05/08/2020 3:46 PM CDT) Pathologist Sig Sensee MAGNESIUM 2.2 1.7 - 2.4 mg/dL [facility] Specimen Blood - VENOUS Performing Organization Address City/State/Zipcode Phone Number [facility] CLIA: [id number] [place] [address] CBC WITH DIFF (05/08/2020 3:46 PM CDT) Pathologist Sig nature WBC 8.50 4.20 - 10.70 [facility] 10*3/L [facility] RBC 4.95 4.26 - 5.52 [facility] 10*6/L [facility] HGB 13.0 12.2 - 16.4 [facility] g/dL [facility] HCT 40.3 38.4 - 49.3 % [facility] MCV 81.4 (L) 81.7 - 95.6 fL [facility] MCH 26.3 26.1 - 32.7 pg [facility] MCHC 32.3 31.2 - 35.0 [facility] g/dL [facility] RDW-SD 41.6 38.5 - 51.6 fL [facility] RDW-CV 14.2 12.1 - 15.4 % [facility] PLT 332 (H) 150 - 328 [facility] 10*3/L [facility] MPV 9.4 (L) 9.8 - 13.0 fL [facility] NRBC/100 WBC 0.0 0.0 - 10.0 /100 [facility] WBCs [facility] NRBC x10^3 <0.01 10*3/L [facility] GRAN MAT (NEUT) % 64.0 % [facility] IMM GRAN % 0.40 % [facility] LYMPH % 25.8 % [facility] MONO % 5.8 % [facility] EOS % 3.6 % [facility] BASO % 0.4 % [facility] GRAN MAT x10^3(ANC) 5.45 1.99 - 6.95 [facility] 10*3/uL HOSPITAL LABORATORY IMM GRAN x10^3 0.03 0.00 - 0.06 [facility] 10*3/uL [facility] LYMPH x10^3 2.19 1.09 - 3.23 [facility] 10*3/uL HOSPITAL LABORATORY MONO x10^3 0.49 0.36 - 1.02 [facility] 10*3/uL HOSPITAL LABORATORY EOS x10^3 0.31 0.06 - 0.53 [facility] 10*3/uL [facility] BASO x10^3 0.03 0.01 - 0.09 [facility] 10*3/uL [facility] Specimen Blood - VENOUS Performing Organization Address [facility] Cent[facility]ode Phone Number [facility] CLIA: [id number] [place] [address] LIPASE, SERUM (05/08/2020 3:46 PM CDT) Pathologist Sig Sensee LIPASE 43 0 - 220 U/L [facility] Specimen Blood - VENOUS Performing Organization Address [facility] Phone Number [facility] CLIA: [id number] [place] [address] LABORATORY [address] [facility] COMP. METABOLIC PANEL (35489) (05/08/2020 3:46 PM CDT) Pathologist Sig Sensee NA 138 135 - 145 [facility] mmol/L [facility] K 3.5 3.5 - 5.0 [facility] mmol/L [facility] CL 106 98 - 108 mmol/L [facility] CO2 TOTAL 26 23 - 31 mmol/L [facility] AGAP 6 2 - 16 [facility] BUN 15 7 - 23 mg/dL [facility] GLUCOSE 133 (H) 70 - 110 mg/dL [facility] CREATININE 0.94 0.60 - 1.25 [facility] mg/dL [facility] TOTAL BILI 0.2 0.1 - 1.1 mg/dL [facility] CALCIUM 8.8 8.6 - 10.6 [facility] mg/dL [facility] T PROTEIN 7.6 6.3 - 8.2 g/dL [facility] ALBUMIN 4.2 3.5 - 5.0 g/dL [facility] ALK PHOS 71 34 - 122 U/L [facility] ALTv 30 5 - 50 U/L [facility] AST(SGOT) 39 13 - 40 U/L [facility] eGFR Calculation 86.0 mL/min/1.73m2 [facility] ([facility] [place]) eGFR Calculation 104.3 mL/min/1.73m2 [facility] () [facility] Specimen Blood - VENOUS Narrative Performed At [place] of Glomerular Filtration Rate (GFR) [facility] and Staging of Kidney Disease* + + +- + | GFR (mL/min/1.73 m2) | With Kidney Damage | Without Kidney Damage + + +- + | >90 | Stage one | Normal + + +- + | 60-89 | Stage two | Decreased GFR + + +- + | 30-59 | Stage three | Stage three + + +- + | 15-29 | Stage four | Stage four + + +- + | <15 (or dialysis) | Stage five | Stage five + + +- + *Each stage assumes the associated GFR level has been in effect for at least three months. Stages 1 to 5, with or without kidney disease, indicate chronic kidney disease. Notes: Determination of stages one and two (with eGFR >59mL/min/1.73 m2) requires estimation of kidney damage for at least three months as defined by structural or functional abnormalities of the kidney, manifested by either: Pathological abnormalities or Markers of kidney damage (including abnormalities in the composition of the blood or urine or abnormalities in imaging tests). Performing Organization Address City/State/Zipcode Phone Number [facility] CLIA: [id number] [place] [address] PROTHROMBIN TIME / INR (05/08/2020 3:46 PM CDT) PROTIME PATIENT 13.5 12.0 - 14.7 [facility] LABORATORY INR 1.1Comment: Normal [facility] INR <1.1; Warfarin HOSPITAL Therapeutic range LABORATORY 2.0 to 3.0 or 2.5 to 3.5, depending upon the indications. Specimen Blood - VENOUS Performing Organization Address City/[facility]/Zipcode Phone Number [facility] CLIA: [id number] [place] [address] aPTT (05/08/2020 3:46 PM CDT) Pathologist Sig nature APTT Patient 27 23 - 38 Seconds [facility] LABORATORY Specimen Blood - VENOUS Narrative Performed At The [facility] patient population mean normal value [facility] LABORATORY for aPTT is 30 seconds. Performing Organization Address [facility]/Zipcode Phone Number [facility] CLIA: [id number] [place] [address] TROPONIN I (05/08/2020 3:46 PM CDT) Pathologist Sig nature TROPONIN I <0.012 <=0.034 ng/mL [facility] LABORATORY Specimen Blood - VENOUS Narrative Performed At Equal or Less than 0.034 ng/ml---Normal [facility] LABORATORY Note: Cardiac troponin begins to rise 3-4 hours after the onset of ischemia. Repeat in 4-6 hours if the sample was drawn within 3-4 hours of the onset of the symptom and found normal. Between 0.035 and 0.120 ng/mL--- Borderline. Questionable myocardial injury or necros is Note: Serial measurement may be necessary to confirm or exclude the diagnosis of myocardial injury or necrosis; Clinical correlation (symptoms, EKGs, imaging studies, and others) required; Repeat in 4-6 hours if clinically indicated. Equal or Higher than 0.121 ng/mL---Abnormal. Myocardial Injury or Necrosis Likely Biotin has been reported to cause a negative bias, interpret results relative to patient's use of biotin. Performing Organization Address [facility] Phone Number [facility] CLIA: [id number] [place] [address] documented in this encounter Visit Diagnoses Diagnosis Chest pain, unspecified type Hypertension, unspecified type Obesity (BMI 30-39.9) Obesity, unspecified KAMRON (obstructive sleep apnea) Obstructive sleep apnea (adult) (pediatr ic) Prediabetes Other abnormal glucose Essential hypertension Unspecified essential hypertension Cardiomyopathy Other primary cardiomyopathies documented in this encounter Administered Medications Medication Order MAR Action Action Date Dose Rate Site acetaminophen (TYLENOL) tablet Given 05/09/2020 8:01 AM CDT 650 mg 650 mg 650 mg, Oral, Q6HPRN, Starting Wed05/08/20 at 1729, Until Discontinued, Routine, Pain (scale 1-3) Given 05/08/2020 10:05 PM CDT 650 mg aspirin chewable tablet 81 mg Given 05/09/2020 8:01 AM CDT 81 mg 81 mg, Oral, DAILY, First dose on Wed05/09/20 at 0900, Until Discontinued, Routine enoxaparin (LOVENOX) injection 40 mg Given 05/09/2020 8:01 AM CDT 40 mg Abdo men-SC 40 mg, Subcutaneous, DAILY, First dose on Wed05/09/20 at 0900, Until Discontinued, Routine lisinopril (PRINIVIL,ZESTRIL) tablet 2.5 mg Given 05/09/2020 8:01 AM CDT 2.5 mg 2.5 mg, Oral, DAILY, First dose on Maya 05/09/20 at 0900, Until Discontinued, Routine morpHINE injection 2 mg 2 mg, Slow IV Push, Q6HPRN, Starting Wed05/08/20 at 220 6, Until Discontinued, Routine, Chest pain Medication Order MAR Action Action Date Dose Rate Site Regadenoson (LEXISCAN) injection Given 05/09/2020 10:34 AM CDT 0 .4 mg 0.4 mg 0.4 mg, IV Push, ONCE, 1 dose, [facility] 05/09/20 at 1115, Routine, cleaning team member approving Restricted medication: REG BERNARD sulfur hexafluoride microsphr (LUMASON) Given 05/09/2020 12:15 P M CDT 5 mL injection 5 mL 5 mL, Intravenous, ONCE, 1 dose, Maya 05/09/20 at 1230, Routine, cleaning team member approving Restricted medication: REG BERNARD tc 99m-tetrofosmin (MYOVIEW) Given 05/09/2020 9:10 AM CDT 16.1 millicuries injection 16.1 millicurie 16.1 millicurie, Intravenous, ONCE, 1 dose, Maya 05/09/20 at 1030, Routine tc 99m-tetrofosmin (MYOVIEW) Given 05/09/2020 10:35 AM CDT 41.6 millicuries injection 41.6 millicurie 41.6 millicurie, Intravenous, ONCE, 1 dose, Maya 05/09/20 at 1045, Routine documented in this encounter Additional Health Concerns Infection Onset Date Last Indicated Resolved Time COVID-19 Rule Out 05/08/2020 05/08/2020 05/08/2020 6: 01 PM CDT documented as of this encounter
--- OUTSIDE RECORDS SUMMARY | 2020-07-12 17:37 | XMS REPORT | Summary of Care ---
:1975 Author Organization [facility] Address [address] [place] [id number] Care Team Providers Name Role Phone Duke Coreas Primary Care Provider Encounter Details Date Type Department Care Team Description 06/05/2020 Letter (Out) [facility] Ada Coreas PA Medicine - [address] [place] [address] [address] [address] [place] [address] [phone] Allergies No Known Allergiesdocumented as of this encounter (statuses as of 06/05/2020) Medications Medication Sig Dispensed Refills Start Date End Date Status Omeprazole 20 mg Take 1 tab PO 30 tablet 0 03/01/2018 Active tabletIndications: every morning Heartburn lisinopril 2.5 mg Take 1 tablet by 90 tablet 1 05/10/2020 Active tabletIndications: mouth daily. Hypertension, unspecified type documented as of this encounter (statuses as of 06/05/2020) Active Problems Problem Noted Date Essential hypertension 05/09/2020 Cardiomyopathy 05/09/2020 Chest pain 05/08/2020 Obesity (BMI 30-39.9) 05/08/2020 KAMRON (obstructive sleep apnea) 05/02/2018 Prediabetes 02/23/2018 documented as of this encounter (statuses as of 06/05/2020) Immunizations Name Administration Dates Next Due Td [...] this topic documented as of this encounter Results Not on filedocumented in this encounter
[2020-07-12] MEDS ORDERED: NA CHLORIDE 0.9% 1,000 ML ONE (18:32)
[2020-07-12] MEDS ORDERED: ONDANSETRON 4 MG/2 ML VIAL ONE (18:32)
[2020-07-12] MEDS ORDERED: DICYCLOMINE HCL 10 MG CAP ONE (18:32)
[2020-07-12 18:33] LABS: Absolute Lymphocytes (CBC) 1.9 K/uL (0.7-4.9); Basophils % 0.6 % (0-1.3); Hematocrit 39.9 % (39.6-49.0); Lymphocytes % 24.3 % (15.3-44.8); MPV 7.8 fL (7.6-11.3); RBC Red Blood Cell Count 5.01 M/uL (4.33-5.43)
[2020-07-12 18:53] LABS: ALT/SGPT 38 U/L (12-78); AST/SGOT 20 U/L (15-37); Albumin 3.7 g/dL (3.4-5.0); Alkaline Phosphatase 81 U/L (45-117); BUN Blood Urea Nitrogen 15 mg/dL (7-18); Bicarbonate 28 mmol/L (21-32); Bilirubin Direct < 0.1 mg/dL (0-0.2); Bilirubin Total 0.2 mg/dL (0.2-1.0); Glucose Level 93 mg/dL (74-106); Lipase 62 U/L (73-393); Potassium 3.6 mmol/L (3.5-5.1); Protein, Total 7.8 g/dL (6.4-8.2); Sodium Level 140 mmol/L (136-145)
--- NOTE | 2020-07-12 19:09 | ER ---
Nurse's Notes [facility] Name: Liborio Martinez Age: 45 yrs Sex: Male : 1975 Arrival Date: 07/12/2020 Time: 17:40 Bed 2 Private MD: Diagnosis: Nausea and vomiting;Generalized abdominal pain Presentation: 07/12 17:48 Chief complaint: Patient states: Abd pain with N/V for 1 day, thinks he might have had ll1 bad food this am. Coronavirus screen: Client denies travel out of the [place] in the last 14 days. At this time, the client does not indicate any symptoms associated with coronavirus-19. Ebola Screen: Patient denies travel to an Ebola-affected area in the 21 days before illness onset. Initial Sepsis Screen: Does the patient meet any 2 criteria? No. Patient's initial sepsis screen is negative. Does the patient have a suspected source of infection? Yes: Acute abdominal pain. Risk Assessment: Do you want to hurt yourself or someone else? Patient reports no desire to harm self or others. Onset of symptoms was July 12, 2020. 17:48 Method Of Arrival: Ambulatory ll1 17:48 Acuity: JUAN 3 ll1 Historical: - Allergies: 17:47 No Known Allergies; ll1 - PMHx: 17:47 GERD; Hypertension; ll1 - PSHx: 17:47 None; ll1 - Immunization history:: Flu vaccine is not up to date. - Social history:: Smoking status: Patient denies any tobacco usage or history of. Screenin:16 Abuse screen: Denies threats or abuse. Nutritional screening: No deficits noted. tw2 Tuberculosis screening: No symptoms or risk factors identified. Fall Risk None identified. Assessment: 18:10 General: Appears in no apparent distress. obese, well groomed, Behavior is calm, tw2 cooperative, appropriate for age. Pain: Complains of pain in abdomen. Neuro: Level of Consciousness is awake, alert, obeys commands, Oriented to person, place, time, situation. Cardiovascular: Heart tones S1 S2 Patient's skin is warm and dry. Respiratory: Airway is patent Respiratory effort is even, unlabored, Respiratory pattern is regular, symmetrical, Breath sounds are clear bilaterally. GI: Abdomen is round non-distended, Bowel sounds present X 4 quads. Abd is soft X 4 quads Reports lower abdominal pain, upper abdominal pain, nausea, vomiting. : No signs and/or symptoms were reported regarding the genitourinary system. EENT: No signs and/or symptoms were reported regarding the EENT system. Derm: No signs and/or symptoms reported regarding the dermatologic system. Musculoskeletal: Range of motion: intact in all extremities. 19:33 Reassessment: Patient appears in no apparent distress at this time. Patient is alert, lp1 oriented x 3, equal unlabored respirations, skin warm/dry/pink. Patient able to tolerate drinking water; states readiness to go home Patient states feeling better. Patient states symptoms have improved. Vital Signs: 17:48 BP 135 / 93; Pulse 63; Resp 18; Temp 98.2; Pulse Ox 97% on R/A; Weight 127.01 kg; ll1 Height 5 ft. 11 in. (180.34 cm); Pain 6/10; 18:27 BP 131 / 88; Pulse 57; Resp 17; Pulse Ox 96% on R/A; tw2 19:33 BP 139 / 88; Pulse 60; Resp 18; Pulse Ox 97% on R/A; Pain 0/10; lp1 17:48 Body Mass Index 39.05 (127.01 kg, 180.34 cm) ll1 ED Course: 17:40 Patient arrived in ED. mr 17:48 Arm band placed on Patient placed in an exam room, on a stretcher. ll1 17:51 Triage completed. ll1 17:52 Emma Prabhakar FNP-C is [facility]. kb 17:52 Chandra Vigil MD is Attending Physician. kb 17:52 Bed in low position. Call light in reach. Pulse ox on. NIBP on. tw2 17:53 Krystal Gaspar RN is Primary Nurse. tw2 18:16 Missed attempt(s): 20 gauge in left antecubital area. Bleeding controlled, band aid tw2 applied, catheter tip intact. Missed attempt(s): 20 gauge in left forearm. notified QUEENIE Espinoza of need for IV at this time.. Bleeding controlled, band aid applied, catheter tip intact. 18:20 Inserted saline lock: 20 gauge in right antecubital area, using aseptic technique. tw2 Blood collected. by [facility]. 19:07 Report given to QUEENIE Vallejo and QUEENIE Nicholson. tw2 19:34 No provider procedures requiring assistance completed. IV discontinued, No lp1 redness/swelling at site. Pressure dressing applied. Administered Medications: 18:20 Drug: NS 0.9% 1000 ml Route: IV; Rate: 1000 ml; Site: right antecubital; tw2 18:20 Drug: Zofran (Ondansetron) 4 mg Route: IVP; Site: right antecubital; tw2 19:03 Follow up: Response: No adverse reaction; Nausea is decreased tw2 18:28 Drug: Bentyl 20 mg Route: PO; tw2 19:03 Follow up: Response: No adverse reaction tw2 Outcome: 19:09 Discharge ordered by . kb 19:34 Discharged to home ambulatory. lp1 19:34 Condition: good 19:34 Discharge instructions given to patient, Instructed on discharge instructions, follow up and referral plans. medication usage, Demonstrated understanding of instructions, follow-up care, medications, Prescriptions given X 2. 19:35 Patient left the ED. lp1 Signatures: Emma Prabhakar, SARWAT-Heather FAM-Naheed Crawford mr Genevieve Ga, RN RN lp1 Krystal Gaspar RN RN tw2 Kiana Galeas ma Elsa Escobar, RN RN ll1 Corrections: (The following items were deleted from the chart) 18:25 18:24 Inserted saline lock: 20 gauge in right antecubital area, using aseptic tw2 technique. Blood collected. ma
--- NOTE | 2020-07-12 19:09 | EDPHYS ---
Physician Documentation [facility] [place], [place] Name: Liborio Martinez Age: 45 yrs Sex: Male : 1975 Arrival Date: 07/12/2020 Time: 17:40 Bed 2 Private MD: ED Physician Chandra Vigil HPI: 07/12 18:28 This 45 yrs old Black Male presents to ER via Ambulatory with complaints of Abdominal kb Pain, Vomiting. 18:28 The patient presents with abd cramping. Onset: The symptoms/episode began/occurred this kb morning. The symptoms do not radiate. Associated signs and symptoms: Pertinent positives: nausea and vomiting, Pertinent negatives: diarrhea, fever. The symptoms are described as crampy. Modifying factors: The symptoms are alleviated by nothing, the symptoms are aggravated by nothing. Severity of pain: At its worst the pain was mild in the emergency department the pain is unchanged. The patient has not experienced similar symptoms in the past. The patient has not recently seen a physician. Pt reports he had a kolache this morning and started having abd cramps, nausea and vomiting about 1.5-2 hours afterwards. REports still having nausea and abd cramps. Historical: - Allergies: 17:47 No Known Allergies; ll1 - PMHx: 17:47 GERD; Hypertension; ll1 - PSHx: 17:47 None; ll1 - Immunization history:: Flu vaccine is not up to date. - Social history:: Smoking status: Patient denies any tobacco usage or history of. ROS: 18:27 Constitutional: Negative for fever, chills, and weight loss, Cardiovascular: Negative kb for chest pain, palpitations, and edema, Respiratory: Negative for shortness of breath, cough, wheezing, and pleuritic chest pain, Back: Negative for injury and pain, MS/Extremity: Negative for injury and deformity, Skin: Negative for injury, rash, and discoloration, Neuro: Negative for headache, weakness, numbness, tingling, and seizure. 18:27 Abdomen/GI: Positive for nausea and vomiting, abdominal cramps. Exam: 18:27 Constitutional: This is a well developed, well nourished patient who is awake, alert, kb and in no acute distress. Head/Face: Normocephalic, atraumatic. Chest/axilla: Normal chest wall appearance and motion. Nontender with no deformity. No lesions are appreciated. Cardiovascular: Regular rate and rhythm with a normal S1 and S2. No gallops, murmurs, or rubs. Normal PMI, no JVD. No pulse deficits. Respiratory: Lungs have equal breath sounds bilaterally, clear to auscultation and percussion. No rales, rhonchi or wheezes noted. No increased work of breathing, no retractions or nasal flaring. Skin: Warm, dry with normal turgor. Normal color with no rashes, no lesions, and no evidence of cellulitis. MS/ Extremity: Pulses equal, no cyanosis. Neurovascular intact. Full, normal range of motion. Neuro: Awake and alert, GCS 15, oriented to person, place, time, and situation. Cranial nerves II-XII grossly intact. Motor strength 5/5 in all extremities. Sensory grossly intact. Cerebellar exam normal. Normal gait. 18:27 Abdomen/GI: Inspection: abdomen appears normal, Bowel sounds: normal, in all quadrants, Palpation: soft, in all quadrants, mild abdominal tenderness, in all quadrants. Vital Signs: 17:48 BP 135 / 93; Pulse 63; Resp 18; Temp 98.2; Pulse Ox 97% on R/A; Weight 127.01 kg; ll1 Height 5 ft. 11 in. (180.34 cm); Pain 6/10; 18:27 BP 131 / 88; Pulse 57; Resp 17; Pulse Ox 96% on R/A; tw2 19:33 BP 139 / 88; Pulse 60; Resp 18; Pulse Ox 97% on R/A; Pain 0/10; lp1 17:48 Body Mass Index 39.05 (127.01 kg, 180.34 cm) ll1 MDM: 17:52 Patient medically screened. kb 18:27 Data reviewed: vital signs, nurses notes. Data interpreted: Pulse oximetry: on room air kb is 96 %. Interpretation: normal. 19:08 Counseling: I had a detailed discussion with the patient and/or guardian regarding: the kb historical points, exam findings, and any diagnostic results supporting the discharge/admit diagnosis, lab results, the need for outpatient follow up, a family practitioner, to return to the emergency department if symptoms worsen or persist or if there are any questions or concerns that arise at home. 07/12 17:53 Order name: Basic Metabolic Panel; Complete Time: 18:58 kb 07/12 17:53 Order name: CBC with Diff; Complete Time: 18:36 kb 07/12 17:53 Order name: Hepatic Function; Complete Time: 18:58 kb 07/12 17:53 Order name: Lipase; Complete Time: 18:58 kb 07/12 17:53 Order name: IV Saline Lock; Complete Time: 18:24 kb 07/12 17:53 Order name: Labs collected and sent; Complete Time: 18:24 kb Administered Medications: 18:20 Drug: NS 0.9% 1000 ml Route: IV; Rate: 1000 ml; Site: right antecubital; tw2 18:20 Drug: Zofran (Ondansetron) 4 mg Route: IVP; Site: right antecubital; tw2 19:03 Follow up: Response: No adverse reaction; Nausea is decreased tw2 18:28 Drug: Bentyl 20 mg Route: PO; tw2 19:03 Follow up: Response: No adverse reaction tw2 Disposition: 07/13 17:58 Co-signature as Attending Physician, Chandra Vigil MD I agree with the assessment and larry plan of care. Disposition: 07/12/20 19:09 Discharged to Home. Impression: Nausea and vomiting, Generalized abdominal pain. - Condition is Stable. - Discharge Instructions: Viral Gastroenteritis, Adult, [id number]. - Prescriptions for Bentyl 20 mg Oral Tablet - take 1 tablet by ORAL route every 6 hours As needed; 20 tablet. Zofran 4 mg Oral Tablet - take 1 tablet by ORAL route every 6 hours As needed; 20 tablet. - Medication Reconciliation Form, Thank You Letter, Antibiotic Education, Prescription Opioid Use, Work release form form. - Follow up: Emergency Department; When: As needed; Reason: Worsening of condition. Follow up: Private Physician; When: 2 - 3 days; Reason: Recheck today's complaints, Continuance of care, Re-evaluation by your physician. Signatures: Dispatcher [employer] Emma Mills, RHINA PAZP-Chandra Anton MD MD cha Pena, Laura RN RN lp1 Krystal Gaspar RN RN tw2 Elsa Escobar RN RN ll1 Corrections: (The following items were deleted from the chart) 07/12 19:35 19:09 07/12/2020 19:09 Discharged to Home. Impression: Nausea and vomiting; Generalized lp1 abdominal pain. Condition is Stable. Forms are Medication Reconciliation Form, Thank You Letter, Antibiotic Education, Prescription Opioid Use. Follow up: Emergency Department; When: As needed; Reason: Worsening of condition. Follow up: Private Physician; When: 2 - 3 days; Reason: Recheck today's complaints, Continuance of care, Re-evaluation by your physician. kb
[2020-07-12 20:06] VITALS: TEMP 98.2
[2020-07-12 20:09] VITALS: BP 139/88; O2SAT 97
== END 2020-07-12 19:35 | disposition home or self-care (01) ==
LOC: ER 17:35
DX: R11.2 Nausea with vomiting, unspecified (principal); I10 Essential (primary) hypertension
CPT/HCPCS: 36415; 80048; 80076; 83690; 85025; 96374; 99284; J2405; J7030

== ENCOUNTER 2024-05-28 13:29 | Emergency (ER) | payer OTHER, SELFPAY ==
--- NOTE | 2024-05-28 15:29 | ER ---
Nurse's Notes [facility] Name: Liborio Martinez Age: 49 yrs Sex: Male : 1975 Arrival Date: 05/28/2024 Time: 13:29 Bed DX4 Private MD: Diagnosis: Rash and other nonspecific skin eruption Presentation: 05/28 14:14 Chief complaint: Patient states: "I might of gotten into some poison juwan". Pt reports aa5 itchy rash to miley arms and legs. Coronavirus screen: At this time, the client does not indicate any symptoms associated with coronavirus-19. Ebola Screen: Patient denies travel to an Ebola-affected area in the 21 days before illness onset. Initial Sepsis Screen: Does the patient meet any 2 criteria? No. Patient's initial sepsis screen is negative. Does the patient have a suspected source of infection? No. Patient's initial sepsis screen is negative. Risk Assessment: Do you want to hurt yourself or someone else? Patient reports no desire to harm self or others. Onset of symptoms was May 2024. 14:14 Acuity: JUAN 5 aa5 14:14 Method Of Arrival: Ambulatory aa5 Historical: - Allergies: 14:15 No Known Allergies; aa5 - PMHx: 14:15 GERD; Hypertension; aa5 - Immunization history:: Adult Immunizations unknown. - Infectious Disease History:: Denies. - Social history:: Smoking status: Reported history of juuling and/or vaping. Vital Signs: 14:14 BP 125 / 82; Pulse 75; Resp 18 S; Temp 97.6(TE); Pulse Ox 98% on R/A; Weight 122.47 kg aa5 (R); Height 5 ft. 11 in. (R); 14:14 Body Mass Index 37.66 (122.47 kg, 180.34 cm) aa5 ED Course: 13:35 Patient arrived in ED. ra3 14:14 Arm band placed on. aa5 14:15 Triage completed. aa5 14:23 Roselyn Dill MD is Attending Physician. sd2 15:53 Simona Gifford, RN is Primary Nurse. hb Administered Medications: 15:53 Drug: Famotidine PO 20 mg PO once Route: PO; hb 15:53 Follow up: Response: Medication administered at discharge. hb 15:53 Drug: predniSONE PO 60 mg PO once Route: PO; hb 15:53 Follow up: Response: Medication administered at discharge. Outcome: 15:28 Discharge ordered by . [email or web address] 15:54 Patient left the ED. hb Signatures: Arlet Bynum RN RN aa5 Simona Gifford RN RN Roselyn Dill MD MD sd2 Emilie Simpson ra3 Corrections: (The following items were deleted from the chart) 14:16 14:14 Pulse 75bpm; Resp 18bpm; Spontaneous; Pulse Ox 98% RA; Temp 97.6F Temporal; aa5 122.47 kg Reported; Height 5 ft. 11 in. Reported; BMI: 37.6; aa5
--- NOTE | 2024-05-28 15:29 | EDPHYS ---
Physician Documentation [facility] Name: Liborio Martinez Age: 49 yrs Sex: Male : 1975 Arrival Date: 05/28/2024 Time: 13:29 Bed DX4 Private MD: ED Physician Roselyn Dill HPI: 05/28 15:25 This 49 yrs old Black Male presents to ER via Ambulatory with complaints of Rash - BL sd2 arm pain. 15:25 49 yo M presents with CC of rash to bilateral arms and legs that started 4 days ago sd2 after he picked up a bunch of branches and yard debris off the ground. He is concerned it may be poison kristi. Has tried over the counter hydrocortisone and creams without relief. . Historical: - Allergies: 14:15 No Known Allergies; aa5 - PMHx: 14:15 GERD; Hypertension; aa5 - Immunization history:: Adult Immunizations unknown. - Infectious Disease History:: Denies. - Social history:: Smoking status: Reported history of juuling and/or vaping. ROS: 15:25 Constitutional: Negative for fever, chills, and weight loss, Eyes: Negative for injury, sd2 pain, redness, and discharge, Cardiovascular: Negative for chest pain, palpitations, and edema, Respiratory: Negative for shortness of breath, cough, wheezing. Abdomen/GI: Negative for abdominal pain, nausea, vomiting, diarrhea. Skin: Positive for rash. Negative for injury and discoloration. Exam: 15:25 Constitutional: This is a well developed, well nourished patient who is awake, alert, sd2 and in no acute distress. Head/Face: Normocephalic, atraumatic. Eyes: EOMI, normal conjunctiva bilaterally Cardiovascular: Regular rate and rhythm with a normal S1 and S2. No gallops, murmurs, or rubs. 2+ distal pulses. Respiratory: Lungs have equal breath sounds bilaterally, clear to auscultation and percussion. No rales, rhonchi or wheezes noted. No increased work of breathing, no retractions or nasal flaring. Abdomen/GI: Soft, non-tender, with normal bowel sounds. No guarding or rebound. No evidence of tenderness throughout. Skin: Warm, dry with normal turgor. Erythematous pruritic blanching maculopapular rash noted to bilateral upper and lower extremities with areas of excoriation. MS/ Extremity: Pulses equal, no cyanosis. Neurovascular intact. Full, normal range of motion. Psych: Awake, alert, with orientation to person, place and time. Behavior, mood, and affect are within normal limits. Vital Signs: 14:14 BP 125 / 82; Pulse 75; Resp 18 S; Temp 97.6(TE); Pulse Ox 98% on R/A; Weight 122.47 kg aa5 (R); Height 5 ft. 11 in. (R); 14:14 Body Mass Index 37.66 (122.47 kg, 180.34 cm) aa5 MDM: 15:25 Differential diagnosis: impetigo, varicella, allergic reaction, parasite infection, sd2 carcinoma, among others. Data reviewed: vital signs, nurses notes. I considered the following discharge prescriptions or medication management in the emergency department Medications were administered in the Emergency Department. See MAR. Care significantly affected by the following chronic conditions: Hypertension. Counseling: I had a detailed discussion with the patient and/or guardian regarding the historical points, exam findings, and any diagnostic results supporting the discharge/admit diagnosis, the need for outpatient follow up, to return to the emergency department if symptoms worsen or persist or if there are any questions or concerns that arise at home. ED course: Given dose of pepcid and prednisone in ER with plans to continue antihistamines and steroids at home. Pt driving so no benadryl given in ER but he will take when he gets home. No signs of anaphylaxis at this time. . 15:28 Patient medically screened. sd2 Administered Medications: 15:53 Drug: Famotidine PO 20 mg PO once Route: PO; hb 15:53 Follow up: Response: Medication administered at discharge. hb 15:53 Drug: predniSONE PO 60 mg PO once Route: PO; hb 15:53 Follow up: Response: Medication administered at discharge. hb Disposition Summary: 05/28/24 15:28 Discharge Ordered Problem: new sd2 Symptoms: are unchanged sd2 Condition: Stable sd2 Diagnosis - Rash and other nonspecific skin eruption sd2 Followup: sd2 - With: Private Physician - When: 2 - 3 days - Reason: Recheck today's complaints, Continuance of care, Re-evaluation by your physician Discharge Instructions: - Discharge Summary Sheet sd2 - Allergies, Adult sd2 - Poison Kristi Dermatitis sd2 Forms: - Medication Reconciliation Form sd2 - Antibiotic Education sd2 - Prescription Opioid Use sd2 - Patient Portal Instructions sd2 - Leadership Thank You Letter sd2 Prescriptions: - Hydroxyzine HCl 25 mg Oral tablet - take 1 tablet ORAL route every 6 hours As needed As needed for itching; do not sd2 take with Benadryl; 12 tablet; Refills: 0, Product Selection Permitted - Prednisone 20 mg Oral Tablet - take 2 tablets ORAL route once daily for 5 days; 10 tablet; Refills: 0, Product sd2 Selection Permitted Signatures: Arlet Bynum RN RN aa5 Simona Gifford RN RN Roselyn Dill MD MD sd2
[2024-05-28] MEDS ORDERED: predniSONE 20 MG TAB ONE (15:39)
[2024-05-28] MEDS ORDERED: FAMOTIDINE 20 MG TAB ONE (15:40)
[2024-05-28 15:58] VITALS: BP 125/82; TEMP 97.6; O2SAT 98
== END 2024-05-28 15:54 | disposition home or self-care (01) ==
LOC: ER 13:29
DX: R21 Rash and other nonspecific skin eruption (principal)
CPT/HCPCS: 99282; J7512

== ENCOUNTER 2024-07-15 08:08 | Emergency (ER) | payer OTHER, SELFPAY ==
--- NOTE | 2024-07-15 08:31 | EDPHYS ---
Physician Documentation [facility] Name: Liborio Martinez Age: 49 yrs Sex: Male : 1975 Arrival Date: 07/15/2024 Time: 08:08 Bed 4 Private MD: ED Physician González Brewster HPI: 07/15 08:33 This 49 yrs old Black Male presents to ER via Ambulatory with complaints of Hand Pain. ec2 08:33 Patient arrives today for evaluation of left hand pain. Patient reports he has been ec2 having lancinating pain in the left upper extremity going from the wrist down ongoing for several years. Patient reports he has intermittently had flares of pain. Patient reports he had pain that was worsening last night and this morning which she will prompted arrival today. Reports no hand injury or trauma.. Historical: - Allergies: 08:19 No Known Allergies; ll1 - PMHx: 08:19 GERD; Hypertension; borderline diabetes; prostate problems; ll1 - PSHx: 08:19 None; ll1 - Immunization history:: Adult Immunizations up to date. - Infectious Disease History:: Denies. - Social history:: Smoking status: Patient denies any tobacco usage or history of. ROS: 08:33 Constitutional: as per hpi ec2 Exam: 08:33 Constitutional: GEN: NAD Head: atraumatic Eyes: EOMI Ears: External ears are ec2 normal. CV: regular rate LUNGS: no respiratory distress ABD: non-distended SKIN: no evidence of rashes MSK: no evidence of trauma, left upper extremity without deformities or crepitus, intact distal neurovascular status of the left upper extremity, intact strength Vital Signs: 08:20 BP 144 / 84; Pulse 54; Resp 17; Temp 98; Pulse Ox 100% ; Weight 122.92 kg; Height 5 ft. ll1 11 in. ; Pain 10/10; 09:04 BP 132 / 81; Pulse 59; Resp 16; Pulse Ox 100% on R/A; mb9 08:20 Body Mass Index 37.80 (122.92 kg, 180.34 cm) ll1 08:20 Pain Scale: Adult ll1 MDM: 08:30 Patient medically screened. ec2 08:33 Data reviewed: vital signs. ED course: Patient arrives today for evaluation of left ec2 hand pain. Examination remarkable for left hand findings as above. Distribution seems to be in a predominantly -1 through 4 digit and descriptor of pain as lancinating sharp and shooting, sounds most likely like neuropathic pain, possible carpal tunnel. Will start the patient on gabapentin and discharged home. Considered other processes such as vascular issues such as DVT, arterial pathology however no significant swelling and strong pulse noted.. Administered Medications: 08:38 Drug: Ketorolac IM 30 mg IM once Route: IM; Site: right gluteus; mb9 09:04 Follow up: Response: No adverse reaction mb9 08:39 Drug: Methocarbamol PO 500 mg PO once Route: PO; mb9 09:04 Follow up: Response: No adverse reaction mb9 08:39 Drug: Gabapentin PO 300 mg PO once Route: PO; mb9 09:04 Follow up: Response: No adverse reaction mb9 08:39 Drug: Acetaminophen PO 1000 mg PO once Route: PO; mb9 09:04 Follow up: Response: No adverse reaction mb9 Disposition Summary: 07/15/24 08:30 Discharge Ordered Notes: Location: Home ec2 Condition: Stable ec2 Diagnosis - Unspecified mononeuropathy of left upper limb ec2 Followup: ec2 - With: Liam Diop MD - When: - Reason: Recheck today's complaints Discharge Instructions: - Discharge Summary Sheet aa5 - Peripheral Neuropathy ec2 - Carpal Tunnel Syndrome, [id number] ec2 Forms: - Work release form aa5 - Medication Reconciliation Form ec2 - Antibiotic Education ec2 - Prescription Opioid Use ec2 - Patient Portal Instructions ec2 - Leadership Thank You Letter ec2 Prescriptions: - gabapentin 300 mg Oral capsule - take 1 capsule ORAL route every 12 hours; 30 capsule; Refills: 0, Product ec2 Selection Permitted - methocarbamol 500 mg Oral tablet - take 2 tablets ORAL route 4 times per day; 30 tablet; Refills: 0, Product ec2 Selection Permitted Signatures: Elsa Escobar RN RN ll1 Naheed Bartholomew RN RN mb9 González Brewster MD MD ec2
--- NOTE | 2024-07-15 08:31 | ER ---
Nurse's Notes [facility] Name: Liborio Martinez Age: 49 yrs Sex: Male : 1975 Arrival Date: 07/15/2024 Time: 08:08 Bed 4 Private MD: Diagnosis: Unspecified mononeuropathy of left upper limb Presentation: 07/15 08:20 Chief complaint: Patient states: L hand pain is severe today. States this has been ll1 happening to both hands off/on for 3 years. Coronavirus screen: Client denies travel out of the [place] in the last 14 days. At this time, the client does not indicate any symptoms associated with coronavirus-19. Ebola Screen: Patient denies travel to an Ebola-affected area in the 21 days before illness onset. Initial Sepsis Screen: Does the patient meet any 2 criteria? No. Patient's initial sepsis screen is negative. Does the patient have a suspected source of infection? No. Patient's initial sepsis screen is negative. Risk Assessment: Do you want to hurt yourself or someone else? Patient reports no desire to harm self or others. Onset of symptoms was July 15, 2024. 08:20 Method Of Arrival: Ambulatory ll1 08:20 Acuity: JUAN 4 ll1 Triage Assessment: 08:21 General: Appears in no apparent distress. Behavior is calm, cooperative, appropriate ll1 for age. Pain: Complains of pain in left hand Pain currently is 10 out of 10 on a pain scale. Quality of pain is described as aching, sharp. Musculoskeletal: Circulation, motion, and sensation intact. Capillary refill < 3 seconds, in left fingers. Reports pain in left hand. Historical: - Allergies: 08:19 No Known Allergies; ll1 - PMHx: 08:19 GERD; Hypertension; borderline diabetes; prostate problems; ll1 - PSHx: 08:19 None; ll1 - Immunization history:: Adult Immunizations up to date. - Infectious Disease History:: Denies. - Social history:: Smoking status: Patient denies any tobacco usage or history of. Screenin:46 [facility] ED Fall Risk Assessment (Adult) History of falling in the last 3 months, mb9 including since admission No falls in past 3 months (0 pts) Confusion or Disorientation No (0 pts) Intoxicated or Sedated No (0 pts) Impaired Gait No (0 pts) Mobility Assist Device Used No (0 pt) Altered Elimination No (0 pt) Score/Fall Risk Level 0 - 2 = Low Risk Oriented to surroundings, Maintained a safe environment, Educated pt \T\ family on fall prevention, incl call for assistance when getting out of bed. Abuse screen: Denies threats or abuse. Nutritional screening: No deficits noted. Tuberculosis screening: No symptoms or risk factors identified. Assessment: 08:30 General: Appears in no apparent distress. Behavior is calm, cooperative. Pain: mb9 Complains of pain in left hand Pain radiates to left arm Pain currently is 7 out of 10 on a pain scale. Quality of pain is described as throbbing, Pain began years ago. Is intermittent. Neuro: [place] Agitation-Sedation Scale (RASS): 0 - Alert and Calm Level of Consciousness is awake, alert, obeys commands, Oriented to person, place, time, situation, Appropriate for age. Cardiovascular: Patient's skin is warm and dry. Respiratory: Airway is patent Respiratory effort is even, unlabored. GI: No signs and/or symptoms were reported involving the gastrointestinal system. : No signs and/or symptoms were reported regarding the genitourinary system. EENT: No signs and/or symptoms were reported regarding the EENT system. Derm: Skin is pink, warm \T\ dry. Musculoskeletal: Range of motion: intact in all extremities. 08:36 Reassessment: D/C pending medication administration wait time. mb9 09:04 Reassessment: Patient and/or family updated on plan of care and expected duration. Pain mb9 level reassessed. Patient states feeling better. Patient states symptoms have improved. Vital Signs: 08:20 BP 144 / 84; Pulse 54; Resp 17; Temp 98; Pulse Ox 100% ; Weight 122.92 kg; Height 5 ft. ll1 11 in. ; Pain 10/10; 09:04 BP 132 / 81; Pulse 59; Resp 16; Pulse Ox 100% on R/A; mb9 08:20 Body Mass Index 37.80 (122.92 kg, 180.34 cm) ll1 08:20 Pain Scale: Adult ll1 ED Course: 08:11 Patient arrived in ED. mg5 08:12 González Brewster MD is Attending Physician. ec2 08:14 Arm band placed on Patient placed in an exam room, on a stretcher. ll1 08:21 Triage completed. ll1 08:30 Provided Education on: press call light if needing anything. mb9 08:30 Placed in gown. Bed in low position. Call light in reach. Side rails up X 1. mb9 08:33 Liam Diop MD is Referral Physician. ec2 08:34 Naheed Bartholomew, QUEENIE is Primary Nurse. mb9 08:46 No provider procedures requiring assistance completed. Patient did not have IV access mb9 during this emergency room visit. Administered Medications: 08:38 Drug: Ketorolac IM 30 mg IM once Route: IM; Site: right gluteus; mb9 09:04 Follow up: Response: No adverse reaction mb9 08:39 Drug: Methocarbamol PO 500 mg PO once Route: PO; mb9 09:04 Follow up: Response: No adverse reaction mb9 08:39 Drug: Gabapentin PO 300 mg PO once Route: PO; mb9 09:04 Follow up: Response: No adverse reaction mb9 08:39 Drug: Acetaminophen PO 1000 mg PO once Route: PO; mb9 09:04 Follow up: Response: No adverse reaction mb9 Medication: 08:47 VIS not applicable for this client. mb9 Outcome: 08:30 Discharge ordered by . ec2 09:04 Discharged to home ambulatory, mb9 09:04 Condition: stable 09:04 Discharge instructions given to patient, Instructed on discharge instructions, follow up and referral plans. Demonstrated understanding of instructions, follow-up care, medications, Prescriptions given X 2, 09:05 Patient left the ED. mb9 Signatures: Arlet Bynum RN RN aa5 Elsa Escobar RN RN [email or web address] Naheed Bartholomew RN RN [email or web address] Alanna Alva mg5 González Brewster MD MD ec2 Corrections: (The following items were deleted from the chart) 08:56 08:25 Arlet Bynum RN is Primary Nurse. aa5 aa5 08:56 08:34 Primary Nurse role handed off by Arlet Bynum RN mb9 aa5
[2024-07-15] MEDS ORDERED: GABAPENTIN 300 MG CAP ONE (08:37)
[2024-07-15] MEDS ORDERED: methocarbamoL 500 MG TAB ONE (08:38)
[2024-07-15] MEDS ORDERED: KETOROLAC 30 MG/ML INJ ONE (08:38)
[2024-07-15] MEDS ORDERED: ACETAMINOPHEN 500 MG TAB ONE (08:38)
[2024-07-15 11:06] VITALS: TEMP 98; O2SAT 100
[2024-07-15 11:07] VITALS: BP 132/81
== END 2024-07-15 09:05 | disposition home or self-care (01) ==
LOC: ER 08:08
DX: G56.92 Unspecified mononeuropathy of left upper limb (principal)

== ENCOUNTER 2024-11-27 14:19 | Emergency (ER) | payer OTHER ==
[2024-11-27] MEDS ORDERED: TDAP (DIPHTH,PERTUSS(ACELL),TET VAC) 0.5 ML VIAL IMVAC ONE (15:24)
--- NOTE | 2024-11-27 15:32 | ER ---
Nurse's Notes [facility] Name: Liborio Martinez Age: 49 yrs Sex: Male : 1975 Arrival Date: 11/27/2024 Time: 14:19 Bed 9 Private MD: Diagnosis: Leg Laceration/ Open wound of lower leg-right Presentation: 11/27 14:54 Chief complaint: Patient states: he cut his right lower leg on a elaine nail last night ap3 at approx 2100. patient currently rates his pain as a 7/10 on the pain scale. patients tetanus is not up to date. Coronavirus screen: At this time, the client does not indicate any symptoms associated with coronavirus-19. Ebola Screen: No symptoms or risks identified at this time. Complicating Factors: The type of wound is a puncture. elaine nail. Initial Sepsis Screen: Does the patient meet any 2 criteria? No. Patient's initial sepsis screen is negative. Does the patient have a suspected source of infection? No. Patient's initial sepsis screen is negative. Risk Assessment: Do you want to hurt yourself or someone else? Patient reports no desire to harm self or others. Onset of symptoms was November 26, 2024 at 21:00. 14:54 Method Of Arrival: Ambulatory ap3 14:54 Acuity: JUAN 4 ap3 Triage Assessment: 14:56 General: Appears in no apparent distress. Behavior is calm, cooperative, appropriate ap3 for age. Pain: Complains of pain in right luther Pain currently is 7 out of 10 on a pain scale. Neuro: Level of Consciousness is awake, alert, obeys commands, Oriented to person, place, time, situation. Cardiovascular: Patient's skin is warm and dry. Respiratory: Airway is patent Respiratory effort is even, unlabored, Respiratory pattern is regular, symmetrical. Injury Description: Laceration sustained to right luther is contaminated, was sustained 12-24 hours ago. Historical: - Allergies: 14:56 No Known Allergies; ap3 - PMHx: 14:56 Borderline Diabetes; GERD; Hypertension; prostate problems; ap3 - Immunization history:: Last tetanus immunization: not immunized. - Infectious Disease History:: Denies. - Social history:: Smoking status: Patient denies any tobacco usage or history of. Screenin:57 [facility] ED Fall Risk Assessment (Adult) History of falling in the last 3 months, ap3 including since admission No falls in past 3 months (0 pts) Confusion or Disorientation No (0 pts) Intoxicated or Sedated No (0 pts) Impaired Gait No (0 pts) Mobility Assist Device Used No (0 pt) Altered Elimination No (0 pt) Score/Fall Risk Level 0 - 2 = Low Risk Oriented to surroundings, Maintained a safe environment, Educated pt \T\ family on fall prevention, incl call for assistance when getting out of bed, Assessed \T\ reinforced patient's understanding of fall precautions, Hourly rounding (assess needs \T\ fall precautionary measures) done, Used ambulatory aids as needed (educated on \T\ assisted with). Abuse screen: Denies threats or abuse. Nutritional screening: No deficits noted. Tuberculosis screening: No symptoms or risk factors identified. Assessment: 15:41 General: Appears in no apparent distress. comfortable, well groomed, well developed, kc6 Behavior is calm, cooperative, appropriate for age. Pain: Complains of pain in lateral aspect of right calf. Neuro: Level of Consciousness is awake, alert, obeys commands, Oriented to person, place, time, situation, Appropriate for age. Cardiovascular: Capillary refill < 3 seconds. Respiratory: Airway is patent Trachea midline Respiratory effort is even, unlabored, Respiratory pattern is regular, symmetrical. GI: No signs and/or symptoms were reported involving the gastrointestinal system. : No signs and/or symptoms were reported regarding the genitourinary system. EENT: No signs and/or symptoms were reported regarding the EENT system. Derm: Skin is healthy with good turgor, Skin is pink, warm \T\ dry. Musculoskeletal: No signs and/or symptoms reported regarding the musculoskeletal system. Circulation, motion, and sensation intact. Range of motion: intact in all extremities. Injury Description: Laceration sustained to lateral aspect of right calf is jagged, 0.5 to 2.5 cm long, not bleeding, was sustained 1 day ago. is bleeding no active bleeding noted. Vital Signs: 14:54 Pulse 78; Resp 17; Temp 98.7; Pulse Ox 100% ; Weight 122.47 kg; Height 5 ft. 11 in. ; ap3 Pain 7/10; 14:56 BP 137 / 84; ap3 14:54 Body Mass Index 37.66 (122.47 kg, 180.34 cm) ap3 14:54 Pain Scale: Adult ap3 ED Course: 14:20 Patient arrived in ED. as 14:24 Chandra Siegel PA is PHCP. cp 14:24 González Brewster MD is Attending Physician. cp 14:56 Triage completed. ap3 14:58 Arm band placed on left wrist. ap3 15:23 Kelsie Jacobs, RN is Primary Nurse. kc6 15:37 Patient has correct armband on for positive identification. Placed in gown. Bed in low kc6 position. Call light in reach. Side rails up X 1. Pulse ox on. NIBP on. Door closed. Noise minimized. Lights dimmed. Pillow given. Verbal reassurance given. 15:37 No provider procedures requiring assistance completed. Patient did not have IV access kc6 during this emergency room visit. Patient maintains SpO2 saturation greater than 95% on room air. Wound care: to laceration located on lateral aspect of right calf was cleaned with Hibiclens, irrigated with normal saline, dressed with Neosporin, 4X4s, Kerlix. Administered Medications: 15:37 Drug: Boostrix Tdap IM 0.5 ml IM once; as a single dose Route: IM; Site: left deltoid; kc6 15:48 Follow up: Response: No adverse reaction kc6 Medication: 15:49 VIS not applicable for this client. kc6 Outcome: 15:31 Discharge ordered by . cp 15:49 Discharged to home ambulatory, kc6 15:49 Condition: good 15:49 Discharge instructions given to patient, Instructed on discharge instructions, follow up and referral plans. medication usage, wound care, Demonstrated understanding of instructions, follow-up care, medications, wound care, Prescriptions given X 2, 15:49 Patient left the ED. kc6 Signatures: Sammie Dickerson as Chandra Siegel PA PA Marisabel Warren RN RN ap3 Kelsie Jacobs, QUEENIE RN kc6
--- NOTE | 2024-11-27 15:32 | EDPHYS ---
Physician Documentation [facility] Name: Liborio Martinez Age: 49 yrs Sex: Male : 1975 Arrival Date: 11/27/2024 Time: 14:19 Bed 9 Private MD: ED Physician González Brewster HPI: 11/27 15:05 This 49 yrs old Black Male presents to ER via Ambulatory with complaints of Laceration cp To Leg, Right. 15:05 The patient has a laceration injury occurred from elaine nail. The laceration(s) is(are) cp located on the lateral aspect of right lower leg. Onset: The symptoms/episode began/occurred last night, about 2100. Associated signs and symptoms: The patient has no apparent associated signs or symptoms. Historical: - Allergies: 14:56 No Known Allergies; ap3 - PMHx: 14:56 Borderline Diabetes; GERD; Hypertension; prostate problems; ap3 - Immunization history:: Last tetanus immunization: not immunized. - Infectious Disease History:: Denies. - Social history:: Smoking status: Patient denies any tobacco usage or history of. ROS: 15:10 MS/extremity: Positive for laceration, pain, of the lateral aspect of right lower leg, cp Negative for paresthesias, 15:10 Eyes: Negative for injury, pain, redness, and discharge, cp 15:10 Constitutional: Negative for body aches, chills, fever, poor PO intake, 15:10 Cardiovascular: Negative for chest pain, palpitations, 15:10 Respiratory: Negative for cough, shortness of breath, wheezing, 15:10 Abdomen/GI: Negative for abdominal pain, nausea, vomiting, and diarrhea, 15:10 All other systems are negative, Exam: 15:15 Constitutional: The patient appears in no acute distress, alert, awake, non-toxic, well cp developed, well nourished, 15:15 Head/Face: Normocephalic, atraumatic. cp 15:15 Chest/axilla: Inspection: normal, 15:15 Cardiovascular: Rate: normal, 15:15 Respiratory: the patient does not display signs of respiratory distress, Respirations: normal, no use of accessory muscles, no retractions, 15:15 Skin: injury, laceration(s), of the lateral aspect of right lower leg, that can be described as no foreign body, linear, with mild bleeding, times 2 with larger laceration approximately 6 cm and smaller laceration approximately 2 cm, mild swelling, tender to palpation, Vital Signs: 14:54 Pulse 78; Resp 17; Temp 98.7; Pulse Ox 100% ; Weight 122.47 kg; Height 5 ft. 11 in. ; ap3 Pain 7/10; 14:56 BP 137 / 84; ap3 14:54 Body Mass Index 37.66 (122.47 kg, 180.34 cm) ap3 14:54 Pain Scale: Adult ap3 MDM: 15:00 Medical Screening Exam initiated cp 15:20 Differential diagnosis: superficial laceration, vascular injury, cellulitis, puncture cp wound. 15:30 Data reviewed: vital signs, nurses notes, and as a result, I will discharge patient. cp 15:30 I considered the following discharge prescriptions or medication management in the emergency department Medications were administered in the Emergency Department. See MAR. Care significantly affected by the following chronic conditions: Diabetes, Hypertension. Counseling: I had a detailed discussion with the patient and/or guardian regarding the historical points, exam findings, and any diagnostic results supporting the discharge/admit diagnosis, to return to the emergency department if symptoms worsen or persist or if there are any questions or concerns that arise at home. Special discussion: I discussed in detail with the patient the higher chance of wound infection based on his presenting history. 11/27 15:03 Order name: Wound Care: clean and irrigate wound, dress; Complete Time: 15:37 cp Administered Medications: 15:37 Drug: Boostrix Tdap IM 0.5 ml IM once; as a single dose Route: IM; Site: left deltoid; [facility] 15:48 Follow up: Response: No adverse reaction kc6 Disposition Summary: 11/27/24 15:31 Discharge Ordered Notes: Location: Home cp Problem: new cp Symptoms: have improved cp Condition: Stable cp Diagnosis - Leg Laceration/ Open wound of lower leg - right cp Followup: cp - With: Private Physician - When: 2 - 3 days - Reason: Wound Recheck Discharge Instructions: - Discharge Summary Sheet cp - How to Change Your Wound Dressing cp - Nonsutured Laceration Care cp - Wound Care, Adult cp Forms: - Medication Reconciliation Form cp - Antibiotic Education cp - Prescription Opioid Use cp - Patient Portal Instructions cp - Leadership Thank You Letter cp Prescriptions: - Cephalexin 500 mg Oral Capsule - take 1 capsule ORAL route every 8 hours for 10 days; 30 capsule; Refills: 0, cp Product Selection Permitted - Ibuprofen 800 mg Oral Tablet - take 1 tablet ORAL route every 8 hours As needed take with food; 30 tablet; cp Refills: 0, Product Selection Permitted Addendum: 11/28/2024 20:23 I was immediately available for consultation during this patient's visit. I did not e c2 personally see the patient or discuss the patient with the MAXIMO. . Signatures: Chandra Siegel PA PA cp Prokisch, Amanda RN RN ap3 Kelsie Jacobs RN RN kc6 González Brewster MD MD ec2
[2024-11-27 15:53] VITALS: TEMP 98.7; O2SAT 100
[2024-11-27 15:54] VITALS: BP 137/84
== END 2024-11-27 15:49 | disposition home or self-care (01) ==
LOC: ER 14:19
DX: S81.811A Laceration without foreign body, right lower leg, initial encounter (principal)
CPT/HCPCS: 96372; 99284

== ENCOUNTER 2025-02-17 12:48 | Emergency (ER) | payer OTHER, SELFPAY ==
[2025-02-17] MEDS ORDERED: LORazepam 2 MG/ML VIAL ONE (13:07)
[2025-02-17] MEDS ORDERED: ONDANSETRON 4 MG/2 ML VIAL ONE (13:08)
[2025-02-17] MEDS ORDERED: MORPHINE 4 MG/ML SYR ONE (13:09)
[2025-02-17 13:21] LABS: Absolute Basophils 0.1 K/uL (0-0.5); Absolute Lymphocytes (CBC) 1.4 K/uL (0.7-4.9); Absolute Monocytes 0.7 K/uL (0.1-1.3); Absolute Neutrophil 9.8 K/uL (1.8-8.0); Basophils % 0.4 % (0-1.3); Eosinophils % 0.4 % (0-4.4); Hematocrit 44.3 % (39.6-49.0); Hemoglobin 14.7 g/dL (13.6-17.9); Lymphocytes % 11.3 % (15.3-44.8); MCH 26.6 pg (27.0-35.0); MCHC 33.3 g/dL (32.0-36.0); MCV 79.9 fL (80-100); MPV 7.7 fL (7.6-11.3); Monocytes % 5.8 % (3.3-12.3); Neutrophils % 82.1 % (41.7-73.7); Platelets 326 thou/uL (152-406); RBC Red Blood Cell Count 5.55 M/uL (4.33-5.43); Red Cell Distribution Width 14.5 % (12.1-15.2)
[2025-02-17 13:30] LABS: Anion Gap 11.9 mEq/L (5.0-15.0); Potassium 3.9 mEq/L (3.5-5.1)
--- NOTE | 2025-02-17 13:43 | RAD REPORT ---
EXAMINATION: Head C Spine Mpr Wo Con CLINICAL INDICATION: Male, 49 years old. TRAUMA TECHNIQUE: Axial CT images from the skull base to the vertex without intravenous contrast. Axial CT i mages through the cervical spine were obtained without intravenous contrast. Sagittal and coronal reformatted images were created from the data set. Coronal and sagittal reformatted images were creat ed from the data set. One or more of the following dose reduction techniques were used: Automated exposure control, adjustment of the mA and/or kV according to patient size, and/or iterative reconstr uction. Unless otherwise specified, incidental findings do not require dedicated imaging follow-up. [id number]. COMPARISON: No prior exam. FINDINGS: Head: INTRACRANIAL: No acute intracranial hemorrhage. No hydrocephalus. No mass effect or midline shift. No significant white matter disease. VASCULATURE: No visualized abnormalities in the arteries or dural venous sinuses. SCALP/SKULL: No calvarial fracture identified. No acute soft tissue abnormality. SINUSES: Mild ethmoid air cell thickening. No significant mastoid fluid. Cervical spine: ALIGNMENT: The cervical spine has normal alignment without scoliosis or spondylolisthesis. BONE: Vertebral body heights are maintained. No aggressive osseous lesions. DEGENERATIVE: Multilevel cervical spondylosis with evidence of bilateral neural foraminal narrowing. No high grade central spinal stenosis. Neural foraminal narrowing is most advanced on the left at C5-6 and on the right at C6-7. SOFT TISSUE: No significant abnormalities in the soft tissue of the neck. The visualized lung apices are clear. IMPRESSION: No acute intracranial abnormality. No acute fracture or traumatic malalignment of the cervical spine.
--- NOTE | 2025-02-17 13:50 | RAD REPORT ---
EXAM: Chest Abd Pelvis Wo Con CLINICAL INDICATION: Male, 49 years old TRAUMA TECHNIQUE: CT chest, abdomen and pelvis was performed, without IV contrast, as per department protoco l. Axial, sagittal and coronal reconstructions were obtained. One or more of the following dose reduction techniques were used: Automated exposure control, adjustment of the mA and/or kV according to the patient size, and/or iterative reconstruction. Unless otherwise specified, incidental findings do not require dedicated imaging follow-up. [id number]. COMPARISON: No prior exam. FINDINGS: The lack of intravenous contrast limits the sensitivity of this exam for evaluation of solid visceral organs, vascular structures, and retroperitoneum. ---THORAX--- LOWER NECK AND CHEST WALL: Visualized thyroid gland and soft tissues are normal. LUNGS AND AIRWAYS: Airways are clear. No evidence of airspace or interstitial process.No dominant or clearly suspicious nodule identified. PLEURA: No pleural effusion. No pneumothorax. MEDIASTINUM AND LYMPH NODES: No mediastinal mass or fluid collection. Normal size mediastinal, hilar, and axillary lymph nodes. Mild distal esophageal thickening. THORACIC AORTA: No thoracic aortic aneurysm. PULMONARY ARTERIES: Caliber is within normal limits. HEART: Normal heart size. No coronary calcifications.No significant pericardial effusion. ---ABDOMEN/PELVIS--- UPPER GI: No significant abnormality. LIVER: No significant focal abnormality. GALLBLADDER/BILE DUCTS: No biliary ductal dilatation.? PANCREAS: No mass, ductal dilation, or shawn-pancreatic fluid. SPLEEN: Unremarkable. ADRENALS: No adrenal masses. KIDNEYS AND URETERS: No hydronephrosis.Limited evaluation for renal lesions in the absence of IV cont rast. ABDOMINAL AORTA AND OTHER VESSELS: Normal caliber aorta and IVC. PERITONEUM: No abnormal free fluid. No free air. LYMPH NODES: No pathologic lymphadenopathy. ABDOMINAL WALL: Unremarkable SMALL BOWEL/COLON: Small bowel has normal course and caliber. No colonic wall thickening or pericolon ic inflammatory changes. URINARY BLADDER: Underdistended but grossly unremarkable. REPRODUCTIVE ORGANS: No pathologic process. ---COMBINED--- MUSCULOSKELETAL: Mildly displaced fracture at the left L2, L3, L4 transverse processes. There may be a nondisplaced fracture at L5. ADDITIONAL FINDINGS: None. IMPRESSION: Mildly displaced fractures at the left L2, L3, and L4 transverse processes. Possible nondisplaced lef t L5 transverse process fracture. No other evidence of significant trauma.
--- NOTE | 2025-02-17 13:57 | RAD REPORT ---
EXAM: Chest Single View HISTORY: 49 years Male TRAUMA COMPARISON: 10/15/2017 FINDINGS: LUNGS/PLEURA: The lungs are clear. No pleural effusions or pneumothorax. No pulmonary edema. CARDIAC/MEDIASTINUM: The cardiac silhouette is within normal limits. UPPER ABDOMEN: No significant abnormality. BONES: No acute abnormality. LINES/TUBES/OTHER: N/A IMPRESSION: No evidence of acute cardiopulmonary disease. No significant change from prior.
--- NOTE | 2025-02-17 14:31 | EDPHYS ---
Physician Documentation [facility] Name: Liborio Martinez Age: 49 yrs Sex: Male : 1975 Arrival Date: 02/17/2025 Time: 12:48 Bed 4 Private MD: ED Physician Evan Cabello HPI: 02/17 17:12 This 49 yrs old Black Male presents to ER via Wheelchair with complaints of Fall Injury.dr5 17:12 Details of fall: The patient fell from a height. Patient is a 49-year-old male with dr5 history of diabetes, GERD, hypertension coming in for fall out of tree approximately 14 feet which he landed straight on his back and then hit his head. Patient reports loss of consciousness after fall. Patient denies numbness or tingling in bilateral legs, perirectal numbness, fever.. Historical: - Allergies: 12:56 No Known Allergies; ll1 - PMHx: 12:56 Borderline Diabetes; GERD; Hypertension; prostate problems; ll1 - Immunization history:: Adult Immunizations up to date. - Immunization history: Last tetanus immunization: - up to date. - Infectious Disease History:: Denies. - Social history:: Smoking status: Patient denies any tobacco usage or history of. ROS: 17:12 Constitutional: as per hpi dr5 Exam: 17:12 Constitutional: This is a well developed, well nourished patient who is awake, alert, dr5 and in no acute distress. Head/Face: Normocephalic, atraumatic. Respiratory: Lungs have equal breath sounds bilaterally, clear to auscultation. No rales, rhonchi or wheezes noted. No increased work of breathing, no retractions or nasal flaring. Abdomen/GI: Soft, non-tender, non-distended Skin: Warm, dry with normal turgor. Normal color with no rashes, no lesions, and no evidence of cellulitis. Neuro: Awake and alert, GCS 15, oriented to person, place, time, and situation. Cranial nerves II-XII grossly intact. Motor strength 5/5 in all extremities. Sensory grossly intact. Cerebellar exam normal. Normal gait. 17:12 Back: pain, that is moderate, of the lumbar area, ROM is painful, normal spinal alignment noted, CVA tenderness, is absent, vertebral tenderness, is appreciated at L2, L3, L4, L5 and sacrum, 17:12 Musculoskeletal/extremity: ROM: no acute changes, Circulation is intact in all extremities. Sensation intact. Vital Signs: 12:56 BP 152 / 102; Pulse 85; Resp 18 S; Temp 100.4(O); Pulse Ox 98% on R/A; Weight 131.54 kg kc6 (R); 13:37 BP 140 / 93; kc6 13:53 Temp 98.8(O); kc6 14:19 BP 135 / 86; Pulse 87; Resp 18; Pulse Ox 97% on R/A; mb9 14:57 BP 145 / 89; Pulse 80; Resp 18 S; Pulse Ox 98% ; kc6 [place] Coma Score: 12:56 Eye Response: spontaneous(4). Motor Response: obeys commands(6). Verbal Response: kc6 oriented(5). Total: 15. Trauma Score (Adult): 12:56 Eye Response: spontaneous(1); Verbal Response: oriented(1); Motor Response: obeys kc6 commands(2); Systolic BP: > 89 mm Hg(4); Respiratory Rate: 10 to 29 per min(4); [place] Score: 15; Trauma Score: 12 Procedures: 17:12 Cervical collar applied, at February 17, 2025 at 12:56. dr5 MDM: 12:52 Medical Screening Exam initiated dr5 17:15 Differential diagnosis: abrasion, closed head injury, contusion, fracture, multiple dr5 trauma. Data reviewed: vital signs, nurses notes, lab test result(s), radiologic studies. Consideration of Admission/Observation Patient was admitted/placed on observation. I considered the following discharge prescriptions or medication management in the emergency department Medications were administered in the Emergency Department. See MAR. Care significantly affected by the following chronic conditions: Diabetes, Hypertension. Care significantly affected by the following Social Determinants of Health: Poor access to healthcare and/or lack of insurance, Poor access to transportation, Problems related to employment. Counseling: I had a detailed discussion with the patient and/or guardian regarding the historical points, exam findings, and any diagnostic results supporting the discharge/admit diagnosis, the presence of at least one elevated blood pressure reading (>120/80) during this emergency department visit, lab results, radiology results, the need to transfer to another facility, for higher level of care, [facility] does not immediately have the required specialist, Patient needs trauma service.. ED course: Will transfer patient to [facility] to [facility] for trauma. Prior to transfer, patient reports bilateral numbness and tingling to hands. C-collar remains on. 02/17 12:58 Order name: Basic Metabolic Panel; Complete Time: 13:30 [facility] 02/17 12:58 Order name: CBC with Diff; Complete Time: 13:28 [facility] 02/17 12:58 Order name: Type And Screen; Complete Time: 13:58 [facility] 02/17 12:58 Order name: CT Head C Spine; Complete Time: 13:48 [facility] 02/17 12:58 Order name: XRAY Chest (1 view); Complete Time: 13:58 [facility] 02/17 13:19 Order name: Chest Abd Pelvis Wo Con; Complete Time: 13:58 [facility] 02/17 12:58 Order name: Labs collected and sent; Complete Time: 13:05 [facility] 02/17 12:58 Order name: C-Collar; Complete Time: 12:59 dr5 Administered Medications: 13:15 Drug: morphine IVP or IV 4 mg IVP once over 4 mins Route: IVP; Infused Over: 4 mins; kc6 Site: right antecubital; 13:37 Follow up: Response: No adverse reaction; Pain is unchanged, physician notified; RASS: kc6 Alert and Calm (0) 13:15 Drug: Ondansetron IVP 4 mg IVP once; over 2 minutes Route: IVP; Site: right antecubital;kc6 13:37 Follow up: Response: No adverse reaction kc6 13:15 Drug: Ativan IVP 0.5 mg IVP once Route: IVP; Site: right antecubital; kc6 13:37 Follow up: Response: No adverse reaction; Pain is unchanged, physician notified; RASS: kc6 Alert and Calm (0) Disposition Summary: 02/17/25 14:31 Transfer Ordered Notes: Transfer Location: [facility] dr5 Reason: Higher level of care dr5 Condition: Stable dr5 Problem: new dr5 Symptoms: are unchanged dr5 Accepting Physician: Dr. Edmonds(02/17/25 16:02) hb Diagnosis - Fall from tree, initial encounter dr5 Forms: - Medication Reconciliation Form dr5 - SBAR form dr5 Signatures: Dispatcher [employer] EDSimona Tirado RN RN hb Elsa Escobar RN RN ll1 Kelsie Jacobs, RN RN kc6 Bud Ruff, TELEVISION INSPECTOR-C TELEVISION INSPECTOR-Cdr5 Corrections: (The following items were deleted from the chart) 13:19 12:58 Head C Spine Cap Wo Con+CT.RAD.BRZ ordered. EDMS EDMS 16:02 14:31 Dr. Edmonds dr5 hb 17:15 17:12 Cervical collar applied, dr5 dr5
--- NOTE | 2025-02-17 14:31 | ER ---
Nurse's Notes [facility] Name: Liborio Martinez Age: 49 yrs Sex: Male : 1975 Arrival Date: 02/17/2025 Time: 12:48 Bed 4 Private MD: Diagnosis: Fall from tree, initial encounter Presentation: 02/17 12:56 Chief complaint: Patient states: Cutting a tree limb. Limb fell and took out his ll1 ladder. + LOC. Back and head pain since fall. Coronavirus screen: Client denies travel out of the [place] in the last 14 days. At this time, the client does not indicate any symptoms associated with coronavirus-19. Ebola Screen: Patient denies travel to an Ebola-affected area in the 21 days before illness onset. Initial Sepsis Screen: Does the patient meet any 2 criteria? No. Patient's initial sepsis screen is negative. Does the patient have a suspected source of infection? No. Patient's initial sepsis screen is negative. Risk Assessment: Do you want to hurt yourself or someone else? Patient reports no desire to harm self or others. Onset of symptoms was February 17, 2025. 12:56 Method Of Arrival: Wheelchair ll1 12:56 Acuity: JUAN 2 ll1 12:56 Care prior to arrival: None. Mechanism of Injury: Fall from ladder approximately 15 kc6 feet. Trauma event details: Injury occurred in the [facility], Injury occurred: at home. Injury occurred: February 17, 2025. Triage Assessment: 12:57 General: Appears distressed, uncomfortable, Behavior is calm, cooperative, appropriate ll1 for age. Pain: Complains of pain in back. Neuro: Reports headache a syncopal episode. Musculoskeletal: Reports pain in back. Trauma Activation: Alert Physician: ED Physician; Name: ; Notified At: ; Arrived At: Physician: General Surgeon; Name: ; Notified At: ; Arrived At: Physician: Radiology; Name: ; Notified At: ; Arrived At: Physician: Respiratory; Name: ; Notified At: ; Arrived At: Physician: Lab; Name: ; Notified At: ; Arrived At: Historical: - Allergies: 12:56 No Known Allergies; ll1 - PMHx: 12:56 Borderline Diabetes; GERD; Hypertension; prostate problems; ll1 - Immunization history:: Adult Immunizations up to date. - Immunization history: Last tetanus immunization: - up to date. - Infectious Disease History:: Denies. - Social history:: Smoking status: Patient denies any tobacco usage or history of. Screenin:56 Abuse screen: Denies threats or abuse. Denies injuries from another. Tuberculosis kc6 screening: No symptoms or risk factors identified. 12:56 [facility] ED Fall Risk Assessment (Adult) History of falling in the last 3 months, kc6 including since admission Yes- single mechanical fall (1 pt) Confusion or Disorientation No (0 pts) Intoxicated or Sedated No (0 pts) Impaired Gait No (0 pts) Mobility Assist Device Used No (0 pt) Altered Elimination No (0 pt) Score/Fall Risk Level 0 - 2 = Low Risk Oriented to surroundings. Nutritional screening: No deficits noted. Primary Survey: 12:56 NO uncontrolled hemorrhage observed. A: The client is awake and alert. The airway is kc6 patent. Breathing/Chest: Spontaneous respiratory effort, equal unlabored respirations, breath sounds clear bilaterally, regular pattern, symmetrical chest rise and fall. Circulation: No external hemorrhage present. Regular and strong central pulse, skin warm/dry/normal color. Disability Pupils are equal, round, reactive to light and accommodation. Client is alert. Exposure/Environment: All clothing and personal items were removed. Forensic evidence collection is not deemed to be indicated at this time. Items placed in patient belonging bag. There is no evidence of uncontrolled external bleeding. No obvious injuries are noted at this time. A warming method has been applied: A warm blanket has been provided to the patient. 13:37 Reassessment Alertness and Airway: Awake and alert. The airway is patent. Breathing: kc6 Spontaneous respiratory effort, equal unlabored respirations, breath sounds clear bilaterally, regular pattern with symmetrical chest rise and fall. Circulation: No external hemorrhage noted. Regular and strong central pulse, skin warm/dry/normal color. Disability: Pupils Pupils are equal, round, reactive to light and accomodation. Alert. Assessment: 12:55 Reassessment: C-Collar applied to pt. mb9 12:56 General: Appears in no apparent distress. uncomfortable, obese, well groomed, well kc6 developed, Behavior is calm, cooperative, appropriate for age. Pain: Complains of pain in back Pain does not radiate. Quality of pain is described as sharp, Pain began suddenly, Is continuous, Alleviated by rest, repositioning, Aggravated by increased activity, Noted to be grimacing, moaning, resistant to movement. Neuro: Level of Consciousness is awake, alert, obeys commands, Oriented to person, place, time, situation, Appropriate for age. Cardiovascular: Capillary refill < 3 seconds. Respiratory: Airway is patent Trachea midline Respiratory effort is even, unlabored, Respiratory pattern is regular, symmetrical. GI: No signs and/or symptoms were reported involving the gastrointestinal system. : No signs and/or symptoms were reported regarding the genitourinary system. EENT: No signs and/or symptoms were reported regarding the EENT system. Derm: No signs and/or symptoms reported regarding the dermatologic system. Skin is intact, is healthy with good turgor, Skin is pink, warm \T\ dry. Musculoskeletal: Circulation, motion, and sensation intact. Range of motion: intact in all extremities. 14:10 Reassessment: Patient appears in no apparent distress at this time. No changes from kc6 previously documented assessment. Patient and/or family updated on plan of care and expected duration. Pain level reassessed. Patient is alert, oriented x 3, equal unlabored respirations, skin warm/dry/pink. 14:30 Neuro: Reports paresthesias in right hand and left hand. kc6 14:56 Reassessment: nurse to nurse report given to Amber JEROME at [facility]. kc6 Vital Signs: 12:56 BP 152 / 102; Pulse 85; Resp 18 S; Temp 100.4(O); Pulse Ox 98% on R/A; Weight 131.54 kg kc6 (R); 13:37 BP 140 / 93; kc6 13:53 Temp 98.8(O); kc6 14:19 BP 135 / 86; Pulse 87; Resp 18; Pulse Ox 97% on R/A; mb9 14:57 BP 145 / 89; Pulse 80; Resp 18 S; Pulse Ox 98% ; kc6 Edwige Coma Score: 12:56 Eye Response: spontaneous(4). Motor Response: obeys commands(6). Verbal Response: kc6 oriented(5). Total: 15. Trauma Score (Adult): 12:56 Eye Response: spontaneous(1); Verbal Response: oriented(1); Motor Response: obeys kc6 commands(2); Systolic BP: > 89 mm Hg(4); Respiratory Rate: 10 to 29 per min(4); [place] Score: 15; Trauma Score: 12 ED Course: 12:51 Patient arrived in ED. al6 12:52 Bud Ruff FNP-C is [facility]. dr5 12:52 Evan Cabello MD is Attending Physician. dr5 12:52 Arm band placed on Patient placed in an exam room, on a stretcher. ll1 12:56 Patient maintains SpO2 saturation greater than 95% on room air. kc6 12:56 Thermoregulation: warm blanket given to patient. kc6 12:56 Rigid cervical collar applied and checked by physician. kc6 12:57 Triage completed. ll1 12:59 Kelsie Jacobs, QUEENIE is Primary Nurse. kc6 13:00 Placed in gown. Bed in low position. Call light in reach. Side rails up X 1. Provided mb9 Education on: press call light if needing anything. Client placed on continuous cardiac and pulse oximetry monitoring. NIBP monitoring applied. truck loader overhead crane on. 13:04 Initial lab(s) drawn, by me, sent to lab. Inserted saline lock: 18 gauge in right hb antecubital area, using aseptic technique. Blood collected. Flushed with 10 mL NS. 13:28 CT Head C Spine In Process Unspecified. EDMS 13:29 Chest Abd Pelvis Wo Con In Process Unspecified. EDMS 13:33 XRAY Chest (1 view) In Process Unspecified. EDMS 14:24 initiated a transfer with Krissy from the [facility]. 14:28 administrative approval given by Krissy Hough Rn/ patient has been accepted to [facility] ED/ Dr. Juan Edmonds has accepted the patient in transfer without conference with Bud Peoples/ report to be called to [phone]. Administered Medications: 13:15 Drug: morphine IVP or IV 4 mg IVP once over 4 mins Route: IVP; Infused Over: 4 mins; kc6 Site: right antecubital; 13:37 Follow up: Response: No adverse reaction; Pain is unchanged, physician notified; RASS: kc6 Alert and Calm (0) 13:15 Drug: Ondansetron IVP 4 mg IVP once; over 2 minutes Route: IVP; Site: right antecubital;kc6 13:37 Follow up: Response: No adverse reaction kc6 13:15 Drug: Ativan IVP 0.5 mg IVP once Route: IVP; Site: right antecubital; kc6 13:37 Follow up: Response: No adverse reaction; Pain is unchanged, physician notified; RASS: kc6 Alert and Calm (0) Outcome: 14:31 ER care complete, transfer ordered by . dr5 16:02 Patient left the ED. hb Signatures: Dispatcher [employer] EDMS Simona Gifford, RN RN Unique Hilario Lynsay RN RN ll1 Kelsie Jacobs RN RN kc6 Naheed Bartholomew RN RN mb9 Bud Ruff, SARWAT-C STATE TESTED NURSING ASSISTANT-5 Dorothy Thomas
[2025-02-17 16:27] VITALS: TEMP 98.8
[2025-02-17 16:29] VITALS: BP 145/89; O2SAT 98
== END 2025-02-17 16:02 | disposition short-term general hospital (02) ==
LOC: ER 12:48
DX: M54.50 Low back pain, unspecified (principal); W14.XXXA Fall from tree, initial encounter
CPT/HCPCS: 36415; 70450; 71045; 71250; 72125; 74176; 80048; 85025; 86850; 86900; 86901; 96374; 96375; 99285; J2405